=== PATIENT | female | born 1950 | race Caucasian/White ===

== ENCOUNTER 2018-03-21 09:08 | Outpatient (CLI) | payer MEDICARE, OTHER ==
[~2018-03-21] VITALS: Ht 165.1 cm; Wt 102.5 kg
[2018-03-21 09:20] VITALS: BP 134/57
[2018-03-21 10:09] LABS: BASOPHILS % (AUTO) 1 % (0-10); EOSINOPHILS # (AUTO) 0.2 10^3/uL (0.0-0.3); EOSINOPHILS % (AUTO) 5 % (0-10); HEMATOCRIT 41 % (35-52); HEMOGLOBIN 14.6 G/DL (11.5-16.0); LYMPHOCYTES # (AUTO) 1.3 X 10^3 (1.0-4.0); LYMPHOCYTES % (AUTO) 27 % (12-44); MEAN CORPUSCULAR HEMOGLOBIN 33 PG (25-34); MEAN CORPUSCULAR HGB CONC 36 G/DL (32-36); MEAN CORPUSCULAR VOLUME 91 FL (80-99); MEAN PLATELET VOLUME 12.2 FL (7.4-10.4); MONOCYTES # (AUTO) 0.4 X 10^3 (0.0-1.0); MONOCYTES % (AUTO) 9 % (0-12); NEUTROPHILS # (AUTO) 2.8 X 10^3 (1.8-7.8); NEUTROPHILS % (AUTO) 59 % (42-75); PLATELET COUNT 192 10^3/uL (130-400); RED BLOOD COUNT 4.47 10^6/uL (4.35-5.85); RED CELL DISTRIBUTION WIDTH 12.3 % (10.0-14.5); WHITE BLOOD COUNT 4.8 10^3/uL (4.3-11.0)
[2018-03-21 10:12] LABS: BILIRUBIN,URINE NEGATIVE (NEGATIVE); CLARITY,URINE CLEAR; COLOR,URINE YELLOW; GLUCOSE, URINE (UA) NEGATIVE (NEGATIVE); KETONES,URINE NEGATIVE (NEGATIVE); LEUKOCYTE ESTERASE ,URINE NEGATIVE (NEGATIVE); NITRITE,URINE NEGATIVE (NEGATIVE); PH,URINE 6.5 (5-9); PROTEIN,URINE NEGATIVE (NEGATIVE); UROBILINOGEN,URINE NORMAL (NORMAL)
[2018-03-21 10:22] LABS: BACTERIA,URINE NEGATIVE /HPF; WBC,URINE 0-2 /HPF
[2018-03-21 10:23] LABS: PROTHROMBIN TIME PATIENT 13.5 SEC (12.2-14.7)
[2018-03-21 10:28] LABS: BUN/CREATININE RATIO 22; CALCIUM 9.2 MG/DL (8.5-10.1); CARBON DIOXIDE 24 MMOL/L (21-32); CHLORIDE 105 MMOL/L (98-107); CREATININE SERUM 0.69 MG/DL (0.60-1.30); GFR ESTIMATED > 60; GLUCOSE 91 MG/DL (70-105); POTASSIUM 3.7 MMOL/L (3.6-5.0); SODIUM 139 MMOL/L (135-145)
[2018-03-21] MEDS ORDERED: UBID100C17 PO (10:39)
[2018-03-21] MEDS ORDERED: GLUC-116 PO (10:39)
[2018-03-21] MEDS ORDERED: KRIL500C PO (10:39)
[2018-03-21] MEDS ORDERED: NAPR500T8 PO (10:39)
[2018-03-21] MEDS ORDERED: SOUR1000 PO (10:39)
[2018-03-21] MEDS ORDERED: CARV12.53 PO (10:39)
[2018-03-21] MEDS ORDERED: HYDR25TA4 PO (10:39)
[2018-03-21] MEDS ORDERED: MULT-1029 PO (10:39)
[2018-03-21] MEDS ORDERED: AMLO5TAB7 PO (10:39)
[2018-03-21] MEDS ORDERED: TURM500C7 PO (10:39)
[2018-03-21] MEDS ORDERED: LEVO125T6 PO (10:39)
--- NOTE | 2018-03-21 11:12 | Diagnostic Imaging Report ---
INDICATION: Preop total knee arthroplasty. TIME OF EXAM: 10:36 AM No prior studies are available for comparison. FINDINGS: The heart size is normal. The pulmonary vascularity is unremarkable. The lungs are clear. No infiltrate, effusion or pneumothorax is detected. IMPRESSION: No acute cardiopulmonary process is detected. Dictated by: Dictated on workstation # [id number]
[2018-03-21] MEDS ORDERED: NAPR-915 PO (15:44)
== END 2018-03-21 10:15 | disposition home or self-care (01) ==
LOC: PREOP 09:08 → EDBD 09:08 → PREOP 10:15
PROVIDERS: ATTEND Orthopaedic Surgery
DX: Z01.810 Encounter for preprocedural cardiovascular examination (principal); Z01.811 Encounter for preprocedural respiratory examination; Z01.812 Encounter for preprocedural laboratory examination; Z11.2 Encounter for screening for other bacterial diseases; M17.11 Unilateral primary osteoarthritis, right knee; I10 Essential (primary) hypertension; R53.83 Other fatigue
CPT/HCPCS: 36415; 71046; 80048; 81000; 85025; 85610; 86850; 86900; 86901; 87081; 93005

== ENCOUNTER 2018-04-02 09:15 | Inpatient (IN) | payer MEDICARE, OTHER ==
[~2018-04-02] VITALS: Ht 165.1 cm; Wt 102.5 kg
[~2018-04-02 09:15] MED LIST: AMLO5TAB7 PO; CARV12.53 PO; GENTAMICIN 40 MG/ML 2 ML INJ SDV ONE; GLUC-116 PO; HYDR25TA4 PO; KRIL500C PO; LEVO125T6 PO; MULT-1029 PO; NAPR-915 PO; NAPR500T8 PO; NEO/POLY/BAC (NEOSPORIN) OINT 15 GM TUBE ONE; SOUR1000 PO; TURM500C7 PO; UBID100C17 PO
[2018-04-02 09:23] VITALS: BP 117/65
[2018-04-02] MEDS ORDERED: BUPIVACAINE 0.5% 30 ML (SENSORCAINE) VIAL ONE (09:26)
[2018-04-02] MEDS ORDERED: DEXAMETHASONE 10 MG/ML (DECADRON) 1 ML VIAL ONE (09:26)
[2018-04-02] MEDS ORDERED: fentaNYL INJECTION 100 MCG/2 ML AMP ONE (09:26)
[2018-04-02] MEDS ORDERED: SEVOFLURANE (ULTANE) 15 ML INHAL SOLN ONE ×9 (09:26→13:08)
[2018-04-02] MEDS ORDERED: LIDOCAINE PF 2% 5 ML (XYLOCAINE) VIAL ONE (09:26)
[2018-04-02] MEDS ORDERED: TRANEXAMIC ACID 100 MG/ML 10 ML INJECTION IV ONE (09:26)
[2018-04-02] MEDS ORDERED: ONDANSETRON 4 MG/2 ML (SDV) Z0FRAN ONE (09:26)
[2018-04-02] MEDS ORDERED: proPOfol 200 MG/20 ML (DIPRIVAN) VIAL IV ONE (09:26)
[2018-04-02] MEDS ORDERED: ROCURONIUM 10 MG/ML 5 ML SYRINGE IV ONE (09:26)
[2018-04-02] MEDS ORDERED: MIDAZOLAM 2 MG/2 ML (VERSED) VIAL ONE (09:26)
[2018-04-02] MEDS ORDERED: GABAPENTIN 600 MG (NEURONTIN) TAB PO ONE (09:45)
[2018-04-02] MEDS ORDERED: ceFAZolin 2 GM IV Premixed 50 ML IV ONE (09:45)
[2018-04-02] MEDS ORDERED: CELECOXIB 100 MG (CeleBREX) CAP PO ONE (09:45)
[2018-04-02] MEDS ORDERED: DEXAMETHASONE 4 MG/ML SDV (DECADRON) IV ONE (09:45)
[2018-04-02] MEDS ORDERED: ONDANSETRON 4 MG/2 ML (SDV) Z0FRAN IVP ONE (09:45)
[2018-04-02] MEDS ORDERED: INTRA-ARTICULAR IU ONE ×4 (10:00)
[2018-04-02] MEDS: LACTATED RINGERS 1,000 ML IV PRN ×2 (10:08→11:35)
--- NOTE | 2018-04-02 10:29 | Progress Note-Pre Operative ---
Pre-Operative Progress Note H&P Reviewed The H&P was reviewed, patient examined and no changes noted. Date Seen by Provider: Apr 02, 2018 Time Seen by Provider: 10:15 Date H&P Reviewed: Apr 02, 2018 Time H&P Reviewed: 10:15 Pre-Operative Diagnosis: Primary Osteoarthritis Right Knee MIKHAIL MORRIS DO Apr 02, 2018 10:29 am
[2018-04-02] MEDS ORDERED: BISACODYL 10 MG SUPP (DULCOLAX) PR PRN (10:30)
[2018-04-02] MEDS ORDERED: KETOROLAC 15 MG/ML VIAL IVP PRN (10:30)
[2018-04-02] MEDS ORDERED: diphenhydrAMINE 50 MG/ML INJ (BENADRYL) IV PRN (10:30)
[2018-04-02] MEDS ORDERED: PROMETHAZINE INJ 25 MG/ML (PHENERGAN) AMP IVP PRN (10:30)
[2018-04-02] MEDS ORDERED: morphine INJ 10 MG/ML 1ML (SYR OR VIAL) IVP PRN (10:30)
[2018-04-02] MEDS ORDERED: ONDANSETRON 4 MG/2 ML (SDV) Z0FRAN IVP PRN ×2 (10:30→13:15)
[2018-04-02] MEDS ORDERED: BACLOFEN 10 MG (LIORESAL) TAB PO PRN (10:30)
[2018-04-02] MEDS ORDERED: GLYCOPYRROLATE 0.2 MG/ML (ROBINUL) 2 ML VIAL ONE (12:26)
[2018-04-02] MEDS ORDERED: NEOSTIGMINE 1 MG/ML 5 ML SYRINGE ONE (12:26)
[2018-04-02] MEDS ORDERED: morphine INJ 10 MG/ML 1ML (SYR OR VIAL) IVP ONE (13:15)
[2018-04-02] MEDS ORDERED: HYDROmorphone 2 MG/ML VIAL (DILAUDID) IV ONE (13:15)
--- NOTE | 2018-04-02 13:16 | Progress Note-Post Operative ---
Post-Operative Progess Note Surgeon (s)/Mine Administrator Supervisor (s) Surgeon MIKHAIL MORRIS DO Mine Administrator Supervisor: Hilario Machado HAND PRESSER-Gómez Pre-Operative Diagnosis Primary Osteoarthritis Right Knee Post-Operative Diagnosis same Procedure & Operative Findings Date of Procedure 04/02/18 Procedure Performed/Findings Right Total Knee Arthroplasty Anesthesia Type General with femoral nerve block Estimated Blood Loss Estimated blood loss (mL): !oo ml Specimens/Packing Specimens Removed none MIKHAIL MORRIS DO Apr 02, 2018 1:16 pm
--- NOTE | 2018-04-02 13:32 | Anesthesia-General Post-Op ---
General Patient Condition Mental Status/LOC: Same as Preop Cardiovascular: Satisfactory Nausea/Vomiting: Absent Respiratory: Satisfactory Pain: Controlled Complications: Absent Post Op Complications Complications None Follow Up Care/Instructions Patient Instructions None needed. Anesthesia/Patient Condition Patient Condition Patient is doing well, no complaints, stable vital signs, no apparent adverse anesthesia problems. No complications reported per nursing. TESSIE MERCER CRNA Apr 02, 2018 13:32
[2018-04-02 13:55] VITALS: BP 145/72
[2018-04-02] MEDS ORDERED: FLU QUADRIvalent (5+ YOA) 2018-2019 (AFLURIA) 0.5 ML IM ONE (15:30)
[2018-04-02] MEDS: D5 1/2 NS 1000 ML IV SOLUTION 1,000 ML IV SCH (16:01)
[2018-04-02 16:12] VITALS: BP 158/77
--- NOTE | 2018-04-02 16:44 | Diagnostic Imaging Report ---
INDICATION: Right knee surgery. TIME OF EXAM: 01:13 p.m. FINDINGS: Two views of the right knee demonstrate postop changes of total knee arthroplasty. Prosthetic elements are in good position without fracture or loosening. Overlying skin viviana are noted. IMPRESSION: Satisfactory postop appearance to the right knee. Dictated by: Dictated on workstation # [id number]
[2018-04-02] MEDS: ceFAZolin 2 GM IV Premixed 50 ML IV SCH (17:36)
[2018-04-02] MEDS: CARVEDILOL 12.5 MG (COREG) TABLET PO SCH (20:23)
[2018-04-02 20:29] VITALS: BP 150/72
[2018-04-03] VITALS (7 sets, daily range): BP systolic 106–155; BP diastolic 56–72
[2018-04-03] MEDS: ceFAZolin 2 GM IV Premixed 50 ML IV SCH (01:27)
--- NOTE | 2018-04-03 04:00 | OPERATIVE REPORT ---
DATE OF SERVICE: PREOPERATIVE DIAGNOSIS: Primary osteoarthritis, right knee. POSTOPERATIVE DIAGNOSIS: Primary osteoarthritis, right knee. PROCEDURE: Right total knee arthroplasty. SURGEON: Mikhail Morris DO RESERVATIONS AND TICKETING AGENT: ALICIA Monreal EXTENSION SUPERVISOR DUTIES: Hilario Machado, surgical services tech was utilized throughout the entire procedure for patient positioning, soft tissue retraction, placement of metallic implants, wound closure, dressing application and patient's transfer. ANESTHESIA: General with a femoral nerve block. ESTIMATED BLOOD LOSS: 100 mL. INDICATIONS AND FINDINGS: The patient is a 67-year-old female seen with chief complaint of progressive right knee pain nonresponsive to conservative treatment. X-rays reveal collapse of her medial patellofemoral compartment. The patient was taken to surgery where a total knee arthroplasty was performed on the right without complication utilizing the Biomet Skycheckinguard total knee system with a press fit 70 mm femoral component cemented 75 mm tibial component, a 34 mm 3-pronged all polyethylene cemented thin patellar component with an 11 mm anterior stabilized tibial bearing implant. PROCEDURE IN DETAIL: The patient was seen by anesthesia preoperatively and under ultrasound guidance, a femoral nerve block was performed on the right to decrease postop pain and decreased amount of medication required during the surgical procedure. The patient was transported to the operating room where general inhalation anesthetic was administered. A well-padded pneumatic tourniquet was placed about the upper aspect of the right thigh. ChloraPrep and sterile drape of the right lower extremity was performed. The right leg was elevated, exsanguinated and the tourniquet was inflated to 300 mmHg pressure. An anterior longitudinal midline incision was made over the anterior surface of the right knee and the incision was deepened through a medial parapatellar incision. The patella was subluxed laterally. Osteophytes from the distal femur were removed with a bone rongeur. A bar pilot hole was then drilled in the distal femur. An intramedullary sha was inserted utilizing a 5-degree valgus cutting guide. A distal femoral cutting guide was assembled and distal femoral osteotomy was completed. The distal femur was sized to a 70 mm component. A 4-way cutting guide was assembled. Anterior and posterior chamfer cuts of the distal femur made. The tibia was subluxed anteriorly. Remnants of the medial and lateral menisci as well as the anterior cruciate ligament were excised. A bar pilot hole was then drilled in the proximal tibia. An intramedullary sha was inserted measuring off the exposed bone over the proximal medial tibia. A proximal tibial cutting guide was assembled and a proximal tibial osteotomy was completed. The knee was taken into full extension with a provisional spacer with satisfactory full extension obtained after subperiosteal dissection was performed of the proximal medial tibia. The osteophytes from the patella rim were removed with a bone rongeur. The posterior aspect of the patella was resected through a cutting guide and drilled through a drill guide. The provisional components were inserted. The knee was cycled through a range of motion. Rotation of the tibial component was noted and marked on the proximal tibia. The proximal tibia was then broached to accept the I-beam stem portion of the implant. The bony surfaces were irrigated extensively with normal saline solution. [place] bone cement was then mixed. This was pressurized in the proximal tibia. The tibial component was cemented in place. The femoral component was press fit into place. The knee was taken into full extension with a provisional tibial bearing implant. The patellar component was cemented in place and held with a clamp. Excess bone cement was removed. The cement was allowed to set. The provisional tibial bearing implant was removed. The knee was additionally irrigated with normal saline solution. The anterior stabilized 11 mm implant was then inserted and locked anteriorly with a locking bar. The knee again was cycled through a range of motion with no instability noted in midrange flexion, full flexion with full extension obtained. The tourniquet was released. Hemostasis was obtained with electrocautery. The knee was placed in 90 degrees of flexion. The medial retinaculum was closed with multiple interrupted [id number] sutures of #1 Vicryl reinforced with a running suture of #1 Stratafix. The subcutaneous tissues were closed with 0 and 2-0 Vicryl suture and the skin was closed with stainless steel viviana and Adaptic Neosporin bulky dressing was placed about the right knee. The patient was awakened and was transported to postoperative recovery with anesthesia personnel present in satisfactory condition. Job ID: [id number] DocumentID: [id number] Dictated Date: 04/02/2018 22:12:08 Print Line Operator Date: 04/03/2018 03:59:08 Dictated By: MIKHAIL MORRIS DO
[2018-04-03] MEDS: D5 1/2 NS 1000 ML IV SOLUTION 1,000 ML IV SCH (05:39)
[2018-04-03] MEDS: LEVOTHYROXINE 125 MCG (LEVOTHROID) TABLET PO SCH (05:39)
[2018-04-03 06:07] LABS: HEMOGLOBIN 13.2 G/DL (11.5-16.0); MEAN PLATELET VOLUME 11.9 FL (7.4-10.4); RED BLOOD COUNT 4.12 10^6/uL (4.35-5.85); RED CELL DISTRIBUTION WIDTH 12.2 % (10.0-14.5); WHITE BLOOD COUNT 13.3 10^3/uL (4.3-11.0)
[2018-04-03 06:28] LABS: BUN/CREATININE RATIO 15; CALCIUM 8.7 MG/DL (8.5-10.1); CARBON DIOXIDE 22 MMOL/L (21-32); CHLORIDE 104 MMOL/L (98-107); CREATININE SERUM 0.72 MG/DL (0.60-1.30); GFR ESTIMATED > 60; GLUCOSE 131 MG/DL (70-105); POTASSIUM 3.6 MMOL/L (3.6-5.0); SODIUM 138 MMOL/L (135-145)
[2018-04-03] MEDS: HYDROcodone/APAP 10 MG/325 MG (LORTAB) TAB PO PRN ×4 (07:55→20:32)
[2018-04-03] MEDS: HYDROCHLOROTHIAZIDE 25 MG (HCTZ) TAB PO SCH (08:08)
[2018-04-03] MEDS: ASPIRIN E.C. 325 MG (ECOTRIN) TABLET PO SCH (08:09)
[2018-04-03] MEDS: amLODIPine 5 MG (NORVASC) TAB PO SCH (08:09)
[2018-04-03] MEDS: CARVEDILOL 12.5 MG (COREG) TABLET PO SCH ×2 (08:09→20:32)
[2018-04-03] MEDS: ENOXAPARIN 40 MG/0.4 ML (LOVENOX) SYR SC SCH (08:10)
--- NOTE | 2018-04-03 09:39 | Physical Therapy Evaluation ---
PT Evaluation-General Medical Diagnosis Admission Date Apr 02, 2018 at 09:15 Medical Diagnosis: right TKA Onset Date: Apr 02, 2018 Therapy Diagnosis Therapy Diagnosis: impaired mobility, strength, endurance, ROM Height/Weight Height (Feet): 5 Height (Inches): 5.00 Weight (Pounds): 226 Weight (Ounces): 0.0 Precautions Precautions/Isolations: Fall Prevention, Standard Precautions Weight Bear Status Right Lower Extremity: Right Weight Bearing/Tolerated Left Lower Extremity: Left Full Weight Bearing Referral Physician: Hilario Machado APRN Reason for Referral: Evaluation/Treatment Social History Home: Multilevel (basement) Current Living Status: Spouse Entry Into Home: Stairs Without Railing PT Steps Into Home: 3 has a pole to hold onto with the 3 steps to enter home Prior/Core FIM Prior Level of Function Functional [place] Measure 0=Not Assessed/NA 4=Minimal Assistance 1=Total Assistance 5=Supervision or Setup 2=Maximal Assistance 6=Modified [place] 3=Moderate Assistance 7=Complete IndependenceIRFPAI Quality Coding Scale 6 Independent with activity with or without an assistive device 5 Patient requires set up or clean up by helper. Patient completes activity by themselves 4 Supervision or touching assist (CGA). [place] provide cues , steadying assist 3 The helper provides less than half the effort to complete the activity 2 The helper provides more than half the effort to complete the activity 1 Dependent. The helper does all the effort to complete an activity 7 Patient refused to complete or attempt activity 9 The patient did not perform the activity before the current illness or injury 88 Not attempted due to Medical conditions or safety concerns Bed Mobility: 7 Transfers (B,C,W/C) (FIM): 7 Gait: 7 PT Evaluation-Current Subjective Patient in recliner pre tx, agrees to PT, no complaints of pain. Pt/Family Goals to be independent at home Objective Patient Orientation: Person, Place, Situation Attachments: SCD's, Polar Pack, IV ROM/Strength ROM Lower Extremities right knee extension +5, flexion 90 degrees Strength Lower Extremities NT Neuromuscular (Tone, Coordination, Reflexes) NT Sensory Vision: Wears Glasses Hearing: Functional Sensation Right Lower Extremit: Impaired Sensation Left Lower Extremity: Intact Sensation Lower Extremities Patient has some numbness in medial right knee Transfers Functional [place] Measure 0=Not Assessed/NA 4=Minimal Assistance 1=Total Assistance 5=Supervision or Setup 2=Maximal Assistance 6=Modified [place] 3=Moderate Assistance 7=Complete [place] Transfers (B, C, W/C) (FIM): 4 Scootin Rollin Supine to/from Sit: 5 Sit to/from Stand: 4 CGA for sit to stand, no complaints of dizziness, cues for hand placement and safety Gait Mode of Locomotion: Walk Anticipated Mode of Locomotion: Walk Gait (FIM): 2 Distance: 60' Gait Level of Assist: 4 Gait Persons Needed: 1 Gait Assistive Device: FWW Comments/Gait Description Patient ambulated 60' with a rolling walker with CGA, stiff right knee with little flexion during ambulation, good step-through Balance Sitting Static: Normal Sitting Dynamic: Normal Standing Static: Good Standing Dynamic: Good Treatment right TKA protocol x10 (AP, QS, HS, SAQ, SLR), CPM donned post tx at 70/-2, polar care on , SCD's on, patient in bed post tx with nurse call, phone, tray, all needs met. Assessment/Needs Patient has impaired mobility, strength, endurance, ROM post right TKA Rehab Potential: Fair PT Short Term Goals Short Term Goals Time Frame: Apr 10, 2018 Transfers (B,C,W/C) (FIM): 5 Gait (FIM): 5 Gait Distance Comment: 150' Gait Level of Assist: 5 Gait Assistive Device: FWW PT Plan Problem List Problem List: Activity Tolerance, Functional Strength, Safety, Balance, Gait, Transfer, Bed Mobility, ROM Treatment/Plan Treatment Plan: Continue Plan of Care Treatment Plan: Bed Mobility, Education, Functional Activity Jayy, Functional Strength, Gait, Safety, Therapeutic Exercise, Transfers Treatment Duration: Apr 10, 2018 Frequency: 11 times per week Estimated Hrs Per Day: .25 hour per day (15-30') Patient and/or Family Agrees t: Yes Safety Risks/Education Patient Education: Gait Training, Transfer Techniques, Reviewed Precautions, Reviewed Use of Ice, Correct Positioning, Safety Issues Teaching Recipient: Patient Teaching Methods: Demonstration, Discussion Response to Teaching: Reinforcement Needed Discharge Recommendations Plan Patient will perform bed mobility and transfer training, balance and endurance training, functional strengthening, stair training, gait training, and education , to improve functional mobility and independence at home. Therapy D/C Recommendations: Home w/ Family Support Time/GCodes Time In: 901 Time Out: 929 Total Billed Treatment Time: 28 Total Billed Treatment 1 visit EVL 15' GT 13' ANNE MARIE WATTERS PT Apr 03, 2018 09:39
--- NOTE | 2018-04-03 11:13 | Consultation-Hospitalist ---
HPI History of Present Illness: HPI/Chief Complaint CC: Medical management following right total knee replacement POD # 1 HPI: This is a 67-year-old white female of Angelica Cannon and ELADIO Ortiz nurse practitioner who presents after an uncomplicated right total knee replacement by Dr. Sheehan. 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 I checked meds and labs and evaluated medical history. Date Seen 04/03/18 Attending Physician Petros Sheehan DO PCP No,Local Physician Referring Physician Date of Admission Apr 02, 2018 at 09:15 Home Medications & Allergies Home Medications Reviewed patient Home Medication Reconciliation performed by pharmacy medication reconciliations electro mechanical solar technician and/or nursing. Patients Allergies have been reviewed. 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) Alcohol Use: Regular Use Number of Drinks Today: 0 Alcohol Beverage of Choice: Wine Recreational Drug Use: No Smoking Status: Never a Smoker Physical Abuse Screen: No Sexual Abuse: No Recent Foreign Travel: No Contact w/other who traveled: No Recent Hopitalizations: No Recent Infectious Disease Expo: No Seasonal Allergies Seasonal Allergies: Yes Past Medical History Surgeries: Orthopedic Cardiac: Hypertension Musculoskeletal: Arthritis Endocrine: Hypothyroidsim History of Blood Disorders: No Family History Cardiovascular disease 19 FATHER FH: prostate cancer 19 FATHER Hypertension 19 FATHER 19 MOTHER Myocardial infarction 19 FATHER 19 MOTHER Hypertension Review of Systems Constitutional: see HPI EENTM: no symptoms reported Respiratory: no symptoms reported Cardiovascular: no symptoms reported Gastrointestinal: no symptoms reported Musculoskeletal: joint pain (right knee) Skin: no symptoms reported Psychiatric/Neurological: No Symptoms Reported All Other Systems Reviewed Negative Unless Noted: Yes Physical Exam Physical Exam Vital Signs Vital Signs - First Documented 04/02/18 04/02/18 09:23 14:00 Temp 98.1 Pulse 63 Resp 18 B/P (MAP) 117/65 (82) Pulse Ox 94 O2 Delivery Room Air O2 Flow Rate 3.00 Capillary Refill : Height, Weight, BMI Height: 5'5.00" Weight: 226lbs. 0.0oz. [id number]; 37.6 BMI Method: General Appearance: No Apparent Distress, WD/WN, Chronically ill, Obese Eyes: Bilateral Eye Normal Inspection, Bilateral Eye PERRL HEENT: PERRL/EOMI, TMs Normal, Normal ENT Inspection, Pharynx Normal Neck: Full Range of Motion, Normal Inspection, Non Tender, Supple, Carotid Bruit Respiratory: Chest Non Tender, Lungs Clear, Normal Breath Sounds, No Accessory Muscle Use, No Respiratory Distress Cardiovascular: Regular Rate, Rhythm, No Edema, No Gallop, No JVD, No Murmur, Normal Peripheral Pulses Gastrointestinal: Normal Bowel Sounds, No Organomegaly, No Pulsatile Mass, Non Tender, Soft Back: Normal Inspection, No CVA Tenderness, No Vertebral Tenderness Extremity: Normal Capillary Refill, Normal Inspection, Normal Range of Motion ( except right knee limited ROM on CPM machine), Non Tender, No Calf Tenderness, No Pedal Edema Neurologic/Psychiatric: Alert, Oriented x3, No Motor/Sensory Deficits, Normal Mood/Affect Skin: Normal Color, Warm/Dry Lymphatic: No Adenopathy Results Results/Procedures Labs Laboratory Tests 04/03/18 05:30 Patient resulted labs reviewed. Assessment/Plan Assessment and Plan Assess & Plan/Chief Complaint Assessment: Status post uncomplicated right total knee replacement by Dr. Sheehan POD # 1 Hypertension Obesity Hypothyroidism Plan: Maintain DVT prophylaxis per protocol Monitor labs Monitor hypertension Diagnosis/Problems Diagnosis/Problems (1) Primary osteoarthritis of right knee Status: Chronic (2) Hypertension Status: Chronic Qualifiers: Hypertension type: essential hypertension Qualified Codes: I10 - Essential (primary) hypertension (3) Hypothyroidism Status: Chronic Qualifiers: Hypothyroidism type: acquired Qualified Codes: E03.9 - Hypothyroidism, unspecified Clinical Quality Measures DVT/VTE Risk/Contraindication: Risk Factor Score Per Nursin RFS Level Per Nursing on Admit: 3=High JENNIFER BOYCE DO Apr 03, 2018 11:13
--- NOTE | 2018-04-03 12:02 | Progress Note (SOAP) ---
Subjective Date Seen by a Provider: Apr 03, 2018 Time Seen by a Provider: 12:01 Subjective/Events-last exam pod 1 s/p right TKA, doing well, no complaints, pain controlled. already ambulated down [place] with therapy. Objective Exam Vital Signs Date Time Temp Pulse Resp B/P (MAP) Pulse Ox O2 Delivery O2 Flow Rate FiO2 04/03/18 09:00 96 Room Air 0.00 04/03/18 08:00 98.7 62 20 132/72 (92) 96 Room Air 04/03/18 04:00 97.6 58 16 129/56 (80) 95 Nasal Cannula 3.00 04/03/18 00:43 96.5 65 16 136/68 (90) 96 Room Air 04/02/18 21:34 2.00 04/02/18 21:00 96 Nasal Cannula 3.00 04/02/18 20:29 95.7 66 12 150/72 (98) 96 Room Air 04/02/18 16:12 97.5 54 12 158/77 (104) 99 Room Air 04/02/18 15:57 Nasal Cannula 2.00 04/02/18 14:55 95.1 04/02/18 14:00 94 Nasal Cannula 3.00 04/02/18 13:55 95.1 56 18 145/72 (96) 95 Room Air I & O 04/03/18 07:00 Intake Total 3750 ml Output Total 2000 ml Balance 1750 ml Capillary Refill : General Appearance: No Apparent Distress Extremity: Normal Capillary Refill, Normal Inspection, Non Tender, No Calf Tenderness, No Pedal Edema Neurologic/Psychiatric: Alert, Oriented x3, No Motor/Sensory Deficits, Normal Mood/Affect Skin: Normal Color, Warm/Dry (dressing right knee has spotty serosang drainage) Results Lab Laboratory Tests 04/03/18 05:30: White Blood Count 13.3H, Red Blood Count 4.12L, Hemoglobin 13.2, Hematocrit 37, Mean Corpuscular Volume 89, Mean Corpuscular Hemoglobin 32, Mean Corpuscular Hemoglobin Concent 36, Red Cell Distribution Width 12.2, Platelet Count 230, Mean Platelet Volume 11.9H, Sodium Level 138, Potassium Level 3.6, Chloride Level 104, Carbon Dioxide Level 22, Anion Gap 12, Blood Urea Nitrogen 11, Creatinine 0.72, Estimat Glomerular Filtration Rate > 60, BUN/Creatinine Ratio 15, Glucose Level 131H, Calcium Level 8.7 Assessment/Plan Assessment/Plan Assess & Plan/Chief Complaint A: s/p right TKA P: continue current treatment, plan to discharge to home with homehealthcare tomorrow. Clinical Quality Measures DVT/VTE Risk/Contraindication: Risk Factor Score Per Nursin RFS Level Per Nursing on Admit: 3=High ELIAS HERNANDEZ APRN Apr 03, 2018 12:02 pm
--- NOTE | 2018-04-03 13:04 | Occupational Therapy Eval ---
OT Evaluation-General/PLF Medical Diagnosis Admission Date Apr 02, 2018 at 09:15 Medical Diagnosis: right TKA Onset Date: Apr 02, 2018 Therapy Diagnosis Therapy Diagnosis: decreased self care skills Height/Weight Height (Feet): 5 Height (Inches): 5.00 Weight (Pounds): 226 Weight (Ounces): 0.0 Precautions Precautions/Isolations: Fall Prevention, Standard Precautions Safety Interventions: None Referral Physician: Hilario Machado APRN Medical History Pertinent Medical History: Arthritis, HTN, Hypothroidism Additional Medical History cataracts, cardiac disorder Current History pt s/p elective right TKA Reviewed History: Yes Social History Home: Multilevel (basement) Current Living Status: Spouse Entry Into Home: Stairs Without Railing Steps Into Home: 3 ADL-Prior Level of Function Functional [place] Measure 0=Not Assessed/NA 4=Minimal Assistance 1=Total Assistance 5=Supervision or Setup 2=Maximal Assistance 6=Modified [place] 3=Moderate Assistance 7=Complete [place] ADL PLOF Comments Pt reports being independent with self care and mobility prior to surgery. 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 Pt reports 2/10 pain in right knee. Mental Status/Objective Patient Orientation: Person, Place, Time, Situation Attachments: IV Current Glasses/Contacts: Yes Hearing Aids: No Upper Extremity ROM Grossly WFL Upper Extremity Coordination Intact Upper Extremity Sensation intact Upper Extremity Strength Grossly WFL ADL-Treatment ADL-Current Pt supine to sit with supervision. Pt donned underwear while seated EOB. Pt able to thread bilateral LE into pant legs. Pt able to pull underwear up over hips, but had LOB requiring min assist to correct. Gait to restroom with FWW. Transfer to toilet with CGA using grab bars. Pt able to complete toileting hygiene and clothing management with CGA for balance. Stood at sink to wash hands with SBA. Pt returned to EOB and completed sit to supine with SBA. Pt resting in bed with needs met, polar pack and CPM in place after session. Functional [place] Measure 0=Not Assessed/NA 4=Minimal Assistance 1=Total Assistance 5=Supervision or Setup 2=Maximal Assistance 6=Modified [place] 3=Moderate Assistance 7=Complete IndependenceIRFPAI Quality Coding Scale 6 Independent with activity with or without an assistive device 5 Patient requires set up or clean up by helper. Patient completes activity by themselves 4 Supervision or touching assist (CGA). [place] provide cues , steadying assist 3 The helper provides less than half the effort to complete the activity 2 The helper provides more than half the effort to complete the activity 1 Dependent. The helper does all the effort to complete an activity 7 Patient refused to complete or attempt activity 9 The patient did not perform the activity before the current illness or injury 88 Not attempted due to Medical conditions or safety concerns Lower Body Dressing (FIM): 4 Toileting (FIM): 4 (CGA) Toilet/Commode Transfer (FIM): 4 (CGA) Education OT Patient Education: Rehab process Teaching Recipient: Patient Teaching Methods: Discussion Response to Teaching: Verbalize Understanding OT Short Term Goals Short Term Goals Transfers (B,C,W/C) (FIM): 5 1=Demonstrate adherence to instructed precautions during ADL tasks. 2=Patient will verbalize/demonstrate understanding of assistive devices/ modifications for ADL. 3=Patient will improve strength/tolerance for activity to enable patient to perform ADL's. OT Financial Advisor Goals Skilled Nursing Goals Time Frame: Apr 10, 2018 Grooming(FIM): 6 Bathing(FIM): 5 Upper Body Dressing(FIM): 6 Lower Body Dressing(FIM): 6 Toileting(FIM): 6 Toilet/Commode Transfer(FIM): 6 Additional Goals: 2-Verbalize Understanding, 3-ImproveStrength/Jayy 1=Demonstrate adherence to instructed precautions during ADL tasks. 2=Patient will verbalize/demonstrate understanding of assistive devices/ modifications for ADL. 3=Patient will improve strength/tolerance for activity to enable patient to perform ADL's. OT Education/Plan Problem List/Assessment Assessment: Dependent Transfers, Impaired Self-Care Skills Pt s/p elective right TKA with decreased mobility and ADL functioning. Pt to benefit from skilled OT intervention for ADL training, transfers, and home safety education to increase level of independence and allow safe return home. Discharge Recommendations Plan/Recommendations: Continue POC Treatment Plan/Plan of Care Treatment,Training & Education: Yes Patient would benefit from OT for education, treatment and training to promote independence in ADL's, mobility, safety and/or upper extremity function for ADL' s. Plan of Care: ADL Retraining, Functional Mobility, UE Funct Exercise/Act Treatment Duration: Apr 10, 2018 Frequency: 5 times per week Estimated Hrs Per Day: .25 hour per day Rehab Potential: Good Time/GCodes Start Time: 10:25 Stop Time: 11:00 Total Time Billed (hr/min): 35 Billed Treatment Time 1 visit, EVL(15minutes), ADL(20minutes) DANIEL LEUNG OT Apr 03, 2018 13:04
--- NOTE | 2018-04-03 13:58 | Physical Therapy Daily Note ---
PT Daily Note-Current Subjective Pt. in bed on CPM and polar pack, stats she is ready to get up , toilet and sit up for a meal, agrees to Rx. Pain Numeric Pain Scale: 2 Location: Right Location Body Site: Knee Pain Description: Ache Mental Status Patient Orientation: Normal For Age Transfers Functional [place] Measure 0=Not Assessed/NA 4=Minimal Assistance 1=Total Assistance 5=Supervision or Setup 2=Maximal Assistance 6=Modified [place] 3=Moderate Assistance 7=Complete IndependenceIRFPAI Quality Coding Scale 6 Independent with activity with or without an assistive device 5 Patient requires set up or clean up by helper. Patient completes activity by themselves 4 Supervision or touching assist (CGA). [place] provide cues , steadying assist 3 The helper provides less than half the effort to complete the activity 2 The helper provides more than half the effort to complete the activity 1 Dependent. The helper does all the effort to complete an activity 7 Patient refused to complete or attempt activity 9 The patient did not perform the activity before the current illness or injury 88 Not attempted due to Medical conditions or safety concerns in out bed and up down chair and toilet all SBA to CGA Weight Bearing Right Lower Extremity: Right Weight Bearing/Tolerated Left Lower Extremity: Left Full Weight Bearing Gait Training Gait Assistive Device: FWW 200ft, 40ft CGA to SBA, moderate weight bearing on FWW, no LOB, good step length no c/o pain Exercises Supine Ex: Ankle pumps, Quad Set, Heel Slides, Straight leg raise Supine Reps: 15 Seated Therapy Exercises: Ankle pumps, Sit to stand, Long arc quads Seated Reps: 12 Treatments toileted managing clothing and clean up SBA, up in recliner after for meal with LEs elevated, day at hand Assessment Current Status: Good Progress AROM approx 5 to 60 degrees PT Short Term Goals Short Term Goals Time Frame: Apr 10, 2018 Transfers (B,C,W/C) (FIM): 5 Gait (FIM): 5 Gait Distance Comment: 150' Gait Level of Assist: 5 Gait Assistive Device: FWW PT Plan Treatment/Plan Treatment Plan: Continue Plan of Care Treatment Plan: Bed Mobility, Education, Functional Activity Jayy, Functional Strength, Gait, Safety, Therapeutic Exercise, Transfers Treatment Duration: Apr 10, 2018 Frequency: 11 times per week Estimated Hrs Per Day: .25 hour per day (15-30') Patient and/or Family Agrees t: Yes Safety Risks/Education Patient Education: Gait Training, Transfer Techniques, Correct Positioning, Disease Process, Safety Issues Teaching Recipient: Patient Teaching Methods: Demonstration, Discussion Response to Teaching: Verbalize Understanding, Reinforcement Needed Time/GCodes Time In: 1325 Time Out: 1350 Total Billed Treatment Time: 25 Total Billed Treatment 1,GT15, EX10 G Codes Necessary: KERLINE Han PTA Apr 03, 2018 13:58
[2018-04-03] MEDS: SENNA W/DOCUSATE (SENOKOT S) TABLET PO SCH (20:32)
[2018-04-04] MEDS: HYDROcodone/APAP 10 MG/325 MG (LORTAB) TAB PO PRN ×4 (00:43→13:21)
[2018-04-04 04:15] VITALS: BP 138/64
[2018-04-04] MEDS: LEVOTHYROXINE 125 MCG (LEVOTHROID) TABLET PO SCH (05:52)
[2018-04-04 06:21] LABS: HEMOGLOBIN 12.4 G/DL (11.5-16.0); MEAN PLATELET VOLUME 11.8 FL (7.4-10.4); RED BLOOD COUNT 3.95 10^6/uL (4.35-5.85); RED CELL DISTRIBUTION WIDTH 12.7 % (10.0-14.5); WHITE BLOOD COUNT 8.6 10^3/uL (4.3-11.0)
[2018-04-04 06:51] LABS: BUN/CREATININE RATIO 17; CALCIUM 8.5 MG/DL (8.5-10.1); CARBON DIOXIDE 26 MMOL/L (21-32); CHLORIDE 102 MMOL/L (98-107); CREATININE SERUM 0.69 MG/DL (0.60-1.30); GFR ESTIMATED > 60; GLUCOSE 102 MG/DL (70-105); POTASSIUM 3.4 MMOL/L (3.6-5.0); SODIUM 139 MMOL/L (135-145)
--- NOTE | 2018-04-04 07:16 | Progress Note (SOAP) ---
Subjective Date Seen by a Provider: Apr 04, 2018 Time Seen by a Provider: 07:14 Subjective/Events-last exam Currently has moderate pain, otherwise she is doing well. No other complaints. Hopeful for discharge today. Objective Exam Vital Signs Date Time Temp Pulse Resp B/P (MAP) Pulse Ox O2 Delivery O2 Flow Rate FiO2 04/04/18 04:15 97.7 77 18 138/64 (88) 95 Room Air 04/03/18 23:55 98.3 69 18 134/61 (85) 93 Room Air 04/03/18 21:20 Room Air 04/03/18 20:00 98.2 75 16 155/67 (96) 96 Room Air 04/03/18 16:40 98.3 71 20 131/60 (83) 94 Room Air 04/03/18 12:00 98.0 66 18 106/64 (78) 96 Room Air 04/03/18 09:00 96 Room Air 0.00 04/03/18 08:00 98.7 62 20 132/72 (92) 96 Room Air I & O 04/04/18 07:00 Intake Total 3000 ml Output Total 3450 ml Balance -450 ml Capillary Refill : General Appearance: No Apparent Distress Extremity: Normal Capillary Refill Neurologic/Psychiatric: Alert, Oriented x3, No Motor/Sensory Deficits, Normal Mood/Affect Skin: Normal Color, Warm/Dry (dressing right knee CDI) Results Lab Laboratory Tests 04/04/18 05:15: White Blood Count 8.6, Red Blood Count 3.95L, Hemoglobin 12.4, Hematocrit 36, Mean Corpuscular Volume 91, Mean Corpuscular Hemoglobin 31, Mean Corpuscular Hemoglobin Concent 34, Red Cell Distribution Width 12.7, Platelet Count 187, Mean Platelet Volume 11.8H, Sodium Level 139, Potassium Level 3.4L, Chloride Level 102, Carbon Dioxide Level 26, Anion Gap 11, Blood Urea Nitrogen 12, Creatinine 0.69, Estimat Glomerular Filtration Rate > 60, BUN/Creatinine Ratio 17, Glucose Level 102, Calcium Level 8.5 Assessment/Plan Assessment/Plan Assess & Plan/Chief Complaint A: s/p right TKA P: If she improves today from a pain control standpoint then she can be discharged. Needs home healthcare 5x/week x 2 weeks for physical therapy. remove viviana on 04/11. Patient needs education on dressing changes. Clinical Quality Measures DVT/VTE Risk/Contraindication: Risk Factor Score Per Nursin RFS Level Per Nursing on Admit: 3=High ELIAS HERNANDEZ APRN Apr 04, 2018 7:16 am
[2018-04-04] MEDS ORDERED: TRAM50TA2 PO (07:19)
[2018-04-04] MEDS ORDERED: SENN-20 PO (07:19)
[2018-04-04] MEDS ORDERED: ASPI-586 PO (07:19)
[2018-04-04] MEDS ORDERED: HYDR-3820 PO (07:19)
--- NOTE | 2018-04-04 07:23 | D/C HH Face to Face Order ---
D/C Face to Face Orders Instructions for Patient Via [facility], Patient Instructions/FollowUp: f/u 2 1/2 weeks Physician to follow Patient: Aguila Discharge Diet for Home: No Restrictions Patient Problems: Primary OA right knee s/p right TKA Goals for Patient: independence with Adl's Patient Data-Allergies,Ht & Wt Patient Allergies: Coded Allergies: No Known Drug Allergies (Unverified , 03/21/18) Height (Feet): 5 Height (Inches): 5.00 Weight (Pounds): 226 Weight (Ounces): 0.0 Home Health Need/Face to Face Date of Face to Face: Apr 04, 2018 Clinical Findings: Pain with ambulation, Unsteady gait I have seen Pt [id number]: Yes Discharged To: Home Diagnosis/Conditions: Primary OA right knee s/p right TKA Patient is Homebound due to: [place] fall risk due to instabilty, Pain w/ ambulation Homebound Status Due to the above stated illness, injury or surgical procedure (medical condition or diagnosis) and associated clinical findings, the patient is homebound because of his/her inability to leave home except with aid of a supportive device and/or person AND leaving the home requires a considerable and taxing effort or is medically contraindicated. Pt req the following assistanc: Walker Home Health Nursing Orders Home Health Services Order: Physical Therapy-Evaluate & Treat physical therapy 5x/week x 2 weeks to assist with strengthening, ROM and gait remove viviana on 04/11 and apply steri strips Home Health Infusion Therapy Site Location: Hand Therapy Orders Therapy Orders: Physical Therapy Therapy Specific Orders: Gait training, Increase strength/endurance, Restore ROM Certify Stmt I certify that this patient is under my care and that I, a nurse practitioner or a physician; a assistant gm of content & delivery working with me, had a face to face encounter that - meets the physician face to face encounter requirements with this patient as dated. ELIAS HERNANDEZ APRN Apr 04, 2018 7:23 am
[2018-04-04 08:00] VITALS: BP 142/63
[2018-04-04] MEDS: SENNA W/DOCUSATE (SENOKOT S) TABLET PO SCH (08:36)
[2018-04-04] MEDS: ENOXAPARIN 40 MG/0.4 ML (LOVENOX) SYR SC SCH (08:36)
[2018-04-04] MEDS: HYDROCHLOROTHIAZIDE 25 MG (HCTZ) TAB PO SCH (08:36)
[2018-04-04] MEDS: ASPIRIN E.C. 325 MG (ECOTRIN) TABLET PO SCH (08:36)
[2018-04-04] MEDS: amLODIPine 5 MG (NORVASC) TAB PO SCH (08:36)
[2018-04-04] MEDS: CARVEDILOL 12.5 MG (COREG) TABLET PO SCH (08:36)
[2018-04-04 11:12] VITALS: BP 148/66
--- NOTE | 2018-04-04 11:21 | Physical Therapy Daily Note ---
PT Daily Note-Current Subjective Pt was awake in bed and agreed to therapy. Pt reported that her leg felt sore today since nerve block has worn off. Pain Location: Right Location Body Site: Knee Mental Status Patient Orientation: Normal For Age Transfers Functional [place] Measure 0=Not Assessed/NA 4=Minimal Assistance 1=Total Assistance 5=Supervision or Setup 2=Maximal Assistance 6=Modified [place] 3=Moderate Assistance 7=Complete IndependenceIRFPAI Quality Coding Scale 6 Independent with activity with or without an assistive device 5 Patient requires set up or clean up by helper. Patient completes activity by themselves 4 Supervision or touching assist (CGA). [place] provide cues , steadying assist 3 The helper provides less than half the effort to complete the activity 2 The helper provides more than half the effort to complete the activity 1 Dependent. The helper does all the effort to complete an activity 7 Patient refused to complete or attempt activity 9 The patient did not perform the activity before the current illness or injury 88 Not attempted due to Medical conditions or safety concerns Transfers (B, C, W/C) (FIM): 6 Scootin Rollin Supine to/from Sit: 6 Sit to/from Stand: 6 Weight Bearing Right Lower Extremity: Right Weight Bearing/Tolerated Left Lower Extremity: Left Full Weight Bearing Gait Training Gait (FIM): 6 Distance (FIM): 3=150 ft Distance: 200' x 2 Gait Level of Assist: 6 Pt ambulated for 200ft with walker. Pt went through stair education with walker. Stair Training Stair Training: Handrails/: 1 handrail, uses walker Stairs (FIM): 2 #of Steps: 4 Stairs: Pattern: Step to Level of Assist: 4 Exercises Supine Ex: Ankle pumps, Quad Set, Heel Slides, Short Arc Quads Supine Reps: 10 Assessment Patient was able to perform all exercises and functional activities. Patient was able to ambulate for 200ft with little difficulty but stated that she was feeling tired by the time she returned to her room. Plan dismissal on this date to home with home health intervention. PT Short Term Goals Short Term Goals Time Frame: Apr 10, 2018 Transfers (B,C,W/C) (FIM): 5 Gait (FIM): 5 Gait Distance Comment: 150' Gait Level of Assist: 5 Gait Assistive Device: FWW PT Plan Treatment/Plan Treatment Plan: Continue Plan of Care Treatment Plan: Bed Mobility, Education, Functional Activity Jayy, Functional Strength, Gait, Safety, Therapeutic Exercise, Transfers Treatment Duration: Apr 10, 2018 Frequency: 11 times per week Estimated Hrs Per Day: .25 hour per day (15-30') Patient and/or Family Agrees t: Yes Time/GCodes Time In: 1005 Time Out: 1030 Total Billed Treatment Time: 25 Total Billed Treatment 1 visit Ex 10 FA 15 TORREY BRAVO PT Apr 04, 2018 11:21
--- NOTE | 2018-04-04 11:24 | Progress Note-Hospitalist ---
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 Sheehan. 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 I checked meds and labs and evaluated medical history. Subjective/Events-last exam Patient doing well No bowel movement yet Participating in therapy Pain is controlled Using incentive spirometer Likely discharge today Review of Systems Gastrointestinal: Constipation Objective Exam Vital Signs Vital Signs Date Time Temp Pulse Resp B/P (MAP) Pulse Ox O2 Delivery O2 Flow Rate FiO2 04/04/18 11:12 97.9 66 148/66 (93) 93 04/04/18 09:00 Room Air 04/04/18 08:00 18 04/03/18 09:00 0.00 Capillary Refill : General Appearance: No Apparent Distress, WD/WN, Obese Respiratory: Chest Non Tender, Lungs Clear, Normal Breath Sounds, No Accessory Muscle Use, No Respiratory Distress Cardiovascular: Regular Rate, Rhythm, No Edema, No Gallop, No JVD, No Murmur, Normal Peripheral Pulses Neurologic/Psychiatric: Alert, Oriented x3, No Motor/Sensory Deficits, Normal Mood/Affect Results/Procedures Lab Laboratory Tests 04/04/18 05:15 Patient resulted labs reviewed. Assessment/Plan Assessment and Plan Assess & Plan/Chief Complaint Assessment: Status post uncomplicated right total knee replacement by Dr. Sheehan POD # 2 Hypertension Obesity Hypothyroidism Plan: Maintain DVT prophylaxis per protocol Monitor labs Monitor hypertension Diagnosis/Problems Diagnosis/Problems (1) Primary osteoarthritis of right knee Status: Chronic (2) Hypertension Status: Chronic Qualifiers: Hypertension type: essential hypertension Qualified Codes: I10 - Essential (primary) hypertension (3) Hypothyroidism Status: Chronic Qualifiers: Hypothyroidism type: acquired Qualified Codes: E03.9 - Hypothyroidism, unspecified Clinical Quality Measures DVT/VTE Risk/Contraindication: Risk Factor Score Per Nursin RFS Level Per Nursing on Admit: 3=High JENNIFER BOYCE DO Apr 04, 2018 11:24
[2018-04-04 14:42] VITALS: BP 148/66
--- NOTE | 2018-04-05 06:56 | Discharge Summary ---
Diagnosis/Chief Complaint Date of Admission Apr 02, 2018 at 09:15 Date of Discharge Apr 04, 2018 at 14:40 Discharge Date: Apr 04, 2018 Discharge Time: 1700 Admission Diagnosis Admission Diagnosis Primary OA right knee Discharge Diagnosis Primary OA right knee s/p right TKA Reason Hospital Visit Scheduled right TKA Discharge Summary Procedures: Right total knee arthroplasty Consultations Dr. Taylor (Internal Medicine for medical management) Discharge Physical Examination Allergies: Coded Allergies: No Known Drug Allergies (Unverified , 03/21/18) Vitals & I&Os Vital Signs Date Time Temp Pulse Resp B/P (MAP) Pulse Ox O2 Delivery O2 Flow Rate FiO2 04/04/18 14:42 66 18 148/66 93 Room Air 0.00 04/04/18 11:12 97.9 General Appearance: Alert, Oriented X3 HEENT: Atraumatic, PERRLA Respiratory: Clear to Auscultation Cardiovascular: Regular Rate Abdominal: Normal Bowel Sounds, Soft Extremities: No Clubbing, No Cyanosis, Normal Pulses Skin: Other (Dressing to right knee CDI) Neuro: Normal Speech, Strength at 5/5 X4 Ext Psych/Mental Status: Mental Status NL Hospital Course The patient was seen in the clinic setting for Primary OA of the right knee. She failed conservative measures and on the date of admission she underwent a right TKA. Overall, the hospital course was uneventful. She was kept in patient for medical management, DVT prophylaxis and IV antibiotic prophylaxis. On the date of discharge her pain was controlled, she was afebrile, eating and drinking well, and ambulating well. Discharge Condition at discharge good Instructions to patient/family Please see electronic discharge instructions given to patient. Discharge Medications Reviewed and agree with Discharge Medication list on patient's Discharge Instruction sheet Clinical Quality Measures DVT/VTE Risk/Contraindication: Risk Factor Score Per Nursin RFS Level Per Nursing on Admit: 3=High ELIAS HERNANDEZ APRN Apr 05, 2018 06:56
== END 2018-04-04 14:40 | disposition home health service (06) | DRG 470 ==
LOC: EDBD → 4TH 09:15
PROVIDERS: ADMIT Orthopaedic Surgery; ATTEND Orthopaedic Surgery
PROC: 0SRC0J9 Replacement of Right Knee Joint with Synthetic Substitute, Cemented, Open Approach (ICD-10-PCS; principal; 2018-04-02 10:20)
DX: M17.0 Bilateral primary osteoarthritis of knee (principal); I10 Essential (primary) hypertension; E78.00 Pure hypercholesterolemia, unspecified; E66.9 Obesity, unspecified; Z68.37 Body mass index [BMI] 37.0-37.9, adult; M54.9 Dorsalgia, unspecified; E03.9 Hypothyroidism, unspecified; K59.00 Constipation, unspecified
CPT/HCPCS: 36415; 73560; 80048; 85027; 86850; 86900; 86901; 94664

== ENCOUNTER 2018-07-30 09:08 | Outpatient (CLI) | payer MEDICARE, OTHER ==
[~2018-07-30] VITALS: Ht 165.1 cm; Wt 102.5 kg
[~2018-07-30 09:08] MED LIST changes: -AMLO5TAB7 PO; +AMLO5TAB9 PO; +ASPI-586 PO; -GENTAMICIN 40 MG/ML 2 ML INJ SDV ONE; +HYDR-3820 PO; -NEO/POLY/BAC (NEOSPORIN) OINT 15 GM TUBE ONE; +SENN-20 PO; +TRAM50TA2 PO
[2018-07-30 09:21] VITALS: BP 117/70
[2018-07-30 09:59] LABS: BASOPHILS % (AUTO) 0 % (0-10); EOSINOPHILS # (AUTO) 0.3 10^3/uL (0.0-0.3); EOSINOPHILS % (AUTO) 5 % (0-10); HEMATOCRIT 43 % (35-52); HEMOGLOBIN 14.7 G/DL (11.5-16.0); LYMPHOCYTES # (AUTO) 1.4 X 10^3 (1.0-4.0); LYMPHOCYTES % (AUTO) 27 % (12-44); MEAN CORPUSCULAR HEMOGLOBIN 30 PG (25-34); MEAN CORPUSCULAR HGB CONC 34 G/DL (32-36); MEAN CORPUSCULAR VOLUME 89 FL (80-99); MEAN PLATELET VOLUME 11.9 FL (7.4-10.4); MONOCYTES # (AUTO) 0.4 X 10^3 (0.0-1.0); MONOCYTES % (AUTO) 8 % (0-12); NEUTROPHILS # (AUTO) 3.2 X 10^3 (1.8-7.8); NEUTROPHILS % (AUTO) 60 % (42-75); PLATELET COUNT 218 10^3/uL (130-400); RED CELL DISTRIBUTION WIDTH 13.2 % (10.0-14.5); WHITE BLOOD COUNT 5.3 10^3/uL (4.3-11.0)
[2018-07-30 10:01] LABS: BILIRUBIN,URINE NEGATIVE (NEGATIVE); CLARITY,URINE CLEAR; COLOR,URINE YELLOW; GLUCOSE, URINE (UA) NEGATIVE (NEGATIVE); KETONES,URINE NEGATIVE (NEGATIVE); LEUKOCYTE ESTERASE ,URINE 2+ (NEGATIVE); NITRITE,URINE NEGATIVE (NEGATIVE); PH,URINE 5 (5-9); PROTEIN,URINE NEGATIVE (NEGATIVE); UROBILINOGEN,URINE NORMAL (NORMAL)
[2018-07-30 10:16] LABS: BUN/CREATININE RATIO 23; CALCIUM 9.4 MG/DL (8.5-10.1); CARBON DIOXIDE 28 MMOL/L (21-32); CHLORIDE 105 MMOL/L (98-107); CREATININE SERUM 0.74 MG/DL (0.60-1.30); GFR ESTIMATED > 60; GLUCOSE 95 MG/DL (70-105); POTASSIUM 3.5 MMOL/L (3.6-5.0); SODIUM 142 MMOL/L (135-145)
[2018-07-30 10:19] LABS: BACTERIA,URINE TRACE /HPF; HYALINE CASTS, URINE RARE /LPF
[2018-07-30 10:31] LABS: PROTHROMBIN TIME PATIENT 12.9 SEC (12.2-14.7)
== END 2018-07-30 10:00 | disposition home or self-care (01) ==
LOC: PREOP 09:08
PROVIDERS: ATTEND Orthopaedic Surgery
DX: Z01.812 Encounter for preprocedural laboratory examination (principal); Z11.2 Encounter for screening for other bacterial diseases; M79.662 Pain in left lower leg; I10 Essential (primary) hypertension; R53.83 Other fatigue; Z22.322 Carrier or suspected carrier of Methicillin resistant Staphylococcus aureus
CPT/HCPCS: 36415; 80048; 81000; 85025; 85610; 86850; 86900; 86901; 87081; 87088

== ENCOUNTER 2018-08-06 06:15 | Inpatient (IN) | payer MEDICARE, OTHER ==
[~2018-08-06] VITALS: Ht 165.1 cm; Wt 102.5 kg
[2018-08-06 06:35] VITALS: BP 134/80
[2018-08-06] MEDS ORDERED: proPOfol 200 MG/20 ML (DIPRIVAN) VIAL IV ONE (06:43)
[2018-08-06] MEDS ORDERED: ONDANSETRON 4 MG/2 ML (SDV) Z0FRAN ONE (06:43)
[2018-08-06] MEDS ORDERED: LIDOCAINE PF 2% 5 ML (XYLOCAINE) VIAL ONE ×2 (06:43→06:45)
[2018-08-06] MEDS ORDERED: SEVOFLURANE (ULTANE) 15 ML INHAL SOLN ONE ×8 (06:43→10:12)
[2018-08-06] MEDS ORDERED: MIDAZOLAM 2 MG/2 ML (VERSED) VIAL ONE (06:44)
[2018-08-06] MEDS ORDERED: fentaNYL INJECTION 100 MCG/2 ML AMP ONE ×2 (06:44→08:26)
[2018-08-06] MEDS ORDERED: BUPIVACAINE 0.5% 30 ML (SENSORCAINE) VIAL ONE (06:45)
[2018-08-06] MEDS ORDERED: NEO/POLY/BAC (NEOSPORIN) OINT 15 GM TUBE ONE (06:53)
[2018-08-06] MEDS ORDERED: GENTAMICIN 40 MG/ML 2 ML INJ SDV ONE (06:53)
[2018-08-06] MEDS: LACTATED RINGERS 1,000 ML IV PRN ×2 (07:00→09:10)
[2018-08-06] MEDS ORDERED: ceFAZolin 2 GM IV Premixed 50 ML ONE (07:04)
[2018-08-06] MEDS ORDERED: ceFAZolin 2 GM IV Premixed 50 ML IV ONE (07:15)
[2018-08-06] MEDS ORDERED: GABAPENTIN 600 MG (NEURONTIN) TAB PO ONE (07:15)
[2018-08-06] MEDS ORDERED: ONDANSETRON 4 MG/2 ML (SDV) Z0FRAN IVP ONE (07:15)
[2018-08-06] MEDS ORDERED: CELECOXIB 100 MG (CeleBREX) CAP PO ONE (07:15)
[2018-08-06] MEDS ORDERED: DEXAMETHASONE 4 MG/ML SDV (DECADRON) IV ONE (07:15)
[2018-08-06 07:30] VITALS: BP 134/80
[2018-08-06] MEDS ORDERED: ROCURONIUM 10 MG/ML 5 ML SYRINGE IV ONE (07:32)
[2018-08-06] MEDS ORDERED: BISACODYL 10 MG SUPP (DULCOLAX) PR PRN (08:00)
[2018-08-06] MEDS ORDERED: PROMETHAZINE INJ 25 MG/ML (PHENERGAN) AMP IVP PRN ×2 (08:00→12:45)
[2018-08-06] MEDS ORDERED: morphine INJ 10 MG/ML 1ML (SYR OR VIAL) IVP PRN (08:00)
[2018-08-06] MEDS ORDERED: diphenhydrAMINE 50 MG/ML INJ (BENADRYL) IV PRN (08:00)
[2018-08-06] MEDS ORDERED: BACLOFEN 10 MG (LIORESAL) TAB PO PRN (08:00)
[2018-08-06] MEDS ORDERED: D5 1/2 NS 1000 ML IV SOLUTION 1,000 ML IV SCH (08:00)
[2018-08-06] MEDS ORDERED: INTRA-ARTICULAR IU ONE ×4 (08:30)
[2018-08-06] MEDS ORDERED: hydrALAZINE (APESOLINE) 20 MG/ML VIAL ONE (08:38)
[2018-08-06] MEDS ORDERED: LEVOTHYROXINE 125 MCG (LEVOTHROID) TABLET PO SCH (09:00)
[2018-08-06] MEDS ORDERED: NON-FORMULARY MEDICATION 1 EA EA (Hydrochlorothiazide 25 MG) PO SCH (09:00)
[2018-08-06] MEDS ORDERED: NON-FORMULARY MEDICATION 1 EA EA (Naproxen 500 MG) PO SCH (09:00)
[2018-08-06] MEDS ORDERED: NON-FORMULARY MEDICATION 1 EA EA (Amlodipine Besylate 5 MG) PO SCH (09:00)
[2018-08-06] MEDS ORDERED: CARVEDILOL 12.5 MG (COREG) TABLET PO SCH (09:00)
[2018-08-06] MEDS ORDERED: GLYCOPYRROLATE 0.2 MG/ML (ROBINUL) 2 ML VIAL ONE (09:24)
[2018-08-06] MEDS ORDERED: NEOSTIGMINE 1 MG/ML 5 ML SYRINGE ONE (09:24)
--- NOTE | 2018-08-06 10:21 | Progress Note-Pre Operative ---
Pre-Operative Progress Note H&P Reviewed The H&P was reviewed, patient examined and no changes noted. Date Seen by Provider: Aug 06, 2018 Time Seen by Provider: 07:40 Date H&P Reviewed: Aug 06, 2018 Time H&P Reviewed: 07:40 Pre-Operative Diagnosis: Primary Osteoarthritis Left Knee MIKHAIL MORRIS DO Aug 06, 2018 10:21
--- NOTE | 2018-08-06 10:24 | Progress Note-Post Operative ---
Post-Operative Progess Note Surgeon (s)/Construction Crew Member (s) Surgeon MIKHAIL MORRIS DO Construction Crew Member: Hilario Machado HVAC/R SERVICE TECHNICIAN-C Pre-Operative Diagnosis Primary Osteoarthritis Left Knee Post-Operative Diagnosis same Procedure & Operative Findings Date of Procedure 08/06/18 Procedure Performed/Findings Left Total Knee Arthroplasty Anesthesia Type General with femoral and IPACK regional nerve block Estimated Blood Loss Estimated blood loss (mL): 75 ml Specimens/Packing Specimens Removed none Packing: none MIKHAIL MORRIS DO Aug 06, 2018 10:24
[2018-08-06] MEDS ORDERED: fentaNYL INJECTION 100 MCG/2 ML AMP IVP ONE (10:45)
[2018-08-06] MEDS ORDERED: MEPERIDINE (DEMEROL) INJ 50 MG/ML IVP ONE (10:45)
[2018-08-06] MEDS ORDERED: ONDANSETRON 4 MG/2 ML (SDV) Z0FRAN IVP PRN (10:45)
[2018-08-06] MEDS ORDERED: morphine INJ 10 MG/ML 1ML (SYR OR VIAL) ONE (10:53)
[2018-08-06] MEDS: morphine INJ 10 MG/ML 1ML (SYR OR VIAL) IVP ONE (10:58)
[2018-08-06] MEDS ORDERED: TRANEXAMIC ACID 100 MG/ML 10 ML INJECTION IV ONE (11:08)
[2018-08-06 12:00] VITALS: BP 160/83
[2018-08-06] MEDS ORDERED: morphine INJ 4 MG/ML 1 ML (VIAL/SYRINGE) ONE (12:08)
--- NOTE | 2018-08-06 12:13 | Diagnostic Imaging Report ---
Left knee at 1042 hours. INDICATION: Postop. AP and lateral views of the left knee were received from the OR. There are no prior studies available for comparison. FINDINGS: There is a total knee prosthesis in place. The prosthetic components appear to be in good position. There is some gas in the soft tissues anterior to the knee joint and there are skin viviana along the anterior aspect of the knee joint as well. There is no fracture or acute bony abnormality identified. IMPRESSION: Stable postoperative left knee. Dictated by: Dictated on workstation # [id number]
[2018-08-06] MEDS: D5 1/2 NS 1000 ML IV SOLUTION 1,000 ML IV SCH (12:43)
[2018-08-06] MEDS: HYDROcodone/APAP 10 MG/325 MG (LORTAB) TAB PO PRN (12:51)
[2018-08-06] MEDS: HYDROCHLOROTHIAZIDE 25 MG (HCTZ) TAB PO SCH (12:51)
[2018-08-06] MEDS: amLODIPine 5 MG (NORVASC) TAB PO SCH (12:51)
[2018-08-06] MEDS: ONDANSETRON 4 MG/2 ML (SDV) Z0FRAN IVP PRN ×2 (13:58→20:33)
[2018-08-06] MEDS: DOCUSATE SODIUM 100 MG (COLACE) CAP PO SCH ×2 (14:25→21:48)
--- NOTE | 2018-08-06 14:26 | NUR ---
PT TO ROOM 431 VIA BED AT 1135 S/P LTKR. CALL LIGHT AND OTHER PERSONAL ITEMS WITHIN REACH, AT BEDSIDE. SEE INTERVENTIONS
[2018-08-06] MEDS: ASPIRIN E.C. 325 MG (ECOTRIN) TABLET PO SCH (15:05)
[2018-08-06] MEDS ORDERED: FLU QUADRIvalent (5+ YOA) 2018-2019 (AFLURIA) 0.5 ML IM ONE (15:15)
[2018-08-06 15:39] VITALS: BP 151/66
[2018-08-06] MEDS: ceFAZolin 2 GM IV Premixed 50 ML IV SCH (16:10)
[2018-08-06] MEDS: NAPROXEN 250 MG (NAPROSYN) TABLET PO SCH (17:54)
[2018-08-06 20:00] VITALS: BP 127/60
[2018-08-06] MEDS: morphine INJ 4 MG/ML 1 ML (VIAL/SYRINGE) IV PRN (20:34)
[2018-08-06] MEDS: CARVEDILOL 12.5 MG (COREG) TABLET PO SCH (21:48)
[2018-08-07] VITALS: BP 133/60
[2018-08-07] MEDS: ceFAZolin 2 GM IV Premixed 50 ML IV SCH (00:25)
--- NOTE | 2018-08-07 00:25 | OPERATIVE REPORT ---
DATE OF SERVICE: 08/06/2018 PREOPERATIVE DIAGNOSIS: Primary osteoarthritis, left knee. POSTOPERATIVE DIAGNOSIS: Primary osteoarthritis, left knee. PROCEDURE: Left total knee arthroplasty. SURGEON: Mikhail Morris DO. SHIPPING AND RECEIVING OPERATOR: ALICIA Monreal. SURGICAL SEED COLLECTOR DUTIES: Hilario Machado, certified ophthalmic surgical assistant, was utilized throughout the entire procedure for the patient positioning, soft tissue retraction, placement of total knee implants, wound closure, dressing application and the patient transfer. ANESTHESIA: General with femoral and IPACKS nerve block. ESTIMATED BLOOD LOSS: 75 mL. COMPLICATIONS: None. INDICATIONS AND FINDINGS: The patient is a 67-year-old female seen with chief complaint of progressive left knee pain nonresponsive to conservative treatment. X-rays reveal collapse of the medial compartment with a varus deformity of the left knee. The patient was taken to surgery where a total knee arthroplasty was performed on the left without complication utilizing the Biomet Nexessguard total knee system with a press fit 67.5 mm femoral component, cemented 71 mm fixed I-beam tibial component, a 34 mm 3-pronged all polyethylene cemented thin patellar component with a 12 mm anterior stabilized tibial bearing implant, Biomet bone cement was utilized. PROCEDURE IN DETAIL: The patient was seen by anesthesia preoperatively and under ultrasound guidance, a femoral and IPACKS nerve block was performed on the left to decrease postop pain and decreased amount of medication required during the surgical procedure. The patient was transferred to the operating room where general inhalation anesthetic was administered. A well-padded pneumatic tourniquet was placed about the upper aspect of the left thigh. A ChloraPrep and sterile drape of the left lower extremity was performed. The left leg was elevated, exsanguinated and the tourniquet was inflated to 300 mmHg pressure. An anterior longitudinal midline incision was made over the anterior surface of the left knee. The incision was deepened through a medial parapatellar incision. Patella was subluxed laterally. Osteophytes in the distal femur were removed with a bone rongeur. A airplane pilot commercial hole was then drilled in the distal femur. An intramedullary sha was inserted utilizing a 5 degree valgus cutting angle. A distal femoral cutting guide was assembled and a distal femoral osteotomy was completed. The distal femur was sized to a 67.5 mm femoral component. A 4-way cutting guide was assembled. Anterior, posterior and chamfer cuts of the distal femur were made. The tibia was subluxed anteriorly. Remnants of the medial and lateral menisci as well as the anterior cruciate ligament were excised. A airplane pilot commercial hole was then drilled into the proximal tibia. An intramedullary sha was inserted, measuring off the exposed bone over the proximal medial tibia. A proximal tibial cutting guide was assembled and a proximal tibial osteotomy was completed. Proximal tibia was sized to a 71 mm component. The gap sizer was inserted and the knee was noted to be stable and with full extension after additional subperiosteal dissection was performed over the proximal medial tibia. Osteophytes in the patellar reamer were removed with a bone rongeur. The posterior aspect of patella was resected through a cutting guide and drilled through the drill guide. Provisional components were inserted. The knee was cycled through a range of motion. Rotation of the tibial component was noted and marked on the proximal tibia. The proximal tibia was then broached to accept the I-beam stem portion of the implant. The bony surfaces were irrigated extensively with normal saline solution. Biomet bone cement was then mixed. This was then pressurized in the proximal tibia and the tibial component was cemented in place. The femoral component was press fit in place. The knee was taken to full extension with a provisional tibial bearing implant. The patellar component was cemented in place and held with a clamp. The cement was allowed to set. All excess cement was removed. The tourniquet was released. Hemostasis was obtained with electrocautery. The knee was additionally irrigated with normal saline solution. The provisional tibial bearing implant was removed. The anterior stabilized tibial bearing implant was then inserted and locked anteriorly with a locking bar. The knee was placed in 90 degrees of flexion. The medial retinaculum was closed with multiple interrupted [id number] sutures of #1 Vicryl reinforced with a running suture of #1 Stratafix. The subcutaneous tissues were closed in layers with 0 and 2-0 Vicryl suture. The skin was closed with stainless steel viviana and Adaptic Neosporin bulky dressing was placed about the left knee. The patient was awakened and was transferred to postoperative recovery with anesthesia personnel present in satisfactory condition. Job ID: [id number] DocumentID: [id number] Dictated Date: 08/07/2018 00:00:24 Brewing Director Date: 08/07/2018 00:24:43 Dictated By: MIKHAIL MORRIS DO
[2018-08-07] MEDS: D5 1/2 NS 1000 ML IV SOLUTION 1,000 ML IV SCH ×2 (02:03→14:10)
[2018-08-07] MEDS: HYDROcodone/APAP 10 MG/325 MG (LORTAB) TAB PO PRN ×5 (02:09→20:42)
[2018-08-07] MEDS: morphine INJ 4 MG/ML 1 ML (VIAL/SYRINGE) IV PRN ×2 (03:33→11:51)
[2018-08-07 04:00] VITALS: BP 137/64
[2018-08-07 04:35] LABS: HEMOGLOBIN 12.9 G/DL (11.5-16.0); MEAN PLATELET VOLUME 11.6 FL (7.4-10.4); RED CELL DISTRIBUTION WIDTH 12.9 % (10.0-14.5); WHITE BLOOD COUNT 10.5 10^3/uL (4.3-11.0)
[2018-08-07 04:50] LABS: BUN/CREATININE RATIO 19; CALCIUM 8.3 MG/DL (8.5-10.1); CARBON DIOXIDE 25 MMOL/L (21-32); CHLORIDE 102 MMOL/L (98-107); GFR ESTIMATED > 60; GLUCOSE 118 MG/DL (70-105); POTASSIUM 3.5 MMOL/L (3.6-5.0); SODIUM 135 MMOL/L (135-145)
[2018-08-07] MEDS: ONDANSETRON 4 MG/2 ML (SDV) Z0FRAN IVP PRN (06:00)
[2018-08-07] MEDS: LEVOTHYROXINE 125 MCG (LEVOTHROID) TABLET PO SCH (06:00)
[2018-08-07] MEDS: NAPROXEN 250 MG (NAPROSYN) TABLET PO SCH ×2 (06:29→16:38)
--- NOTE | 2018-08-07 07:30 | Anesthesia-General Post-Op ---
General Patient Condition Mental Status/LOC: Same as Preop Cardiovascular: Satisfactory Nausea/Vomiting: Absent Respiratory: Satisfactory Pain: Controlled Complications: Absent Post Op Complications Complications None Follow Up Care/Instructions Patient Instructions None needed. Anesthesia/Patient Condition Patient Condition Patient is doing well, no complaints, stable vital signs, no apparent adverse anesthesia problems. No complications reported per nursing. SUSY DURAND CRNA Aug 07, 2018 07:30
[2018-08-07 08:00] VITALS: BP 126/58
[2018-08-07] MEDS: HYDROCHLOROTHIAZIDE 25 MG (HCTZ) TAB PO SCH (08:22)
[2018-08-07] MEDS: ASPIRIN E.C. 325 MG (ECOTRIN) TABLET PO SCH (08:22)
[2018-08-07] MEDS: DOCUSATE SODIUM 100 MG (COLACE) CAP PO SCH ×2 (08:22→20:43)
[2018-08-07] MEDS: SENNA W/DOCUSATE (SENOKOT S) TABLET PO SCH ×2 (08:22→20:43)
[2018-08-07] MEDS: amLODIPine 5 MG (NORVASC) TAB PO SCH (08:23)
[2018-08-07] MEDS: CARVEDILOL 12.5 MG (COREG) TABLET PO SCH ×2 (08:23→20:42)
[2018-08-07] MEDS: ENOXAPARIN 40 MG/0.4 ML (LOVENOX) SYR SC SCH (08:23)
--- NOTE | 2018-08-07 09:15 | Consultation-Hospitalist ---
HPI History of Present Illness: HPI/Chief Complaint Chief Compliant: Status post left knee replacement by Dr. Sheehan POD# 1 HPI: This is a 67yo whose PCP is a nurse practitioner with the last name of Babatunde in [place] who presents following an uncomplicated left knee replacement. Currently pain is controlled and she is able to get up and around with therapies help and denies any chest pain or shortness of breath. I did review her home mediation and will restart all of them. Source: patient Exam Limitations: no limitations Date Seen 08/07/18 Attending Physician Petros Sheehan DO PCP No,Local Physician Referring Physician Date of Admission Aug 06, 2018 at 06:15 Home Medications & Allergies Home Medications Reviewed patient Home Medication Reconciliation performed by pharmacy medication reconciliations fingerprint technician and/or nursing. Patients Allergies have been reviewed. 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) Alcohol Use: Denies Use Number of Drinks Today: Alcohol Beverage of Choice: Wine Recreational Drug Use: No Smoking Status: Never a Smoker Physical Abuse Screen: No Sexual Abuse: No Recent Foreign Travel: No Contact w/other who traveled: No Recent Hopitalizations: No Recent Infectious Disease Expo: No Seasonal Allergies Seasonal Allergies: Yes Past Medical History Surgeries: Orthopedic Currently Using CPAP: No Currently Using BIPAP: No Cardiac: Hypertension Musculoskeletal: Arthritis Endocrine: Hypothyroidsim History of Blood Disorders: No Family History Cardiovascular disease 19 FATHER FH: prostate cancer 19 FATHER Hypertension 19 FATHER 19 MOTHER Myocardial infarction 19 FATHER 19 MOTHER Hypertension Review of Systems Constitutional: see HPI EENTM: no symptoms reported Respiratory: no symptoms reported Cardiovascular: no symptoms reported Gastrointestinal: no symptoms reported Genitourinary: no symptoms reported Musculoskeletal: joint pain Skin: no symptoms reported Psychiatric/Neurological: No Symptoms Reported All Other Systems Reviewed Negative Unless Noted: Yes Physical Exam Physical Exam Vital Signs Vital Signs - First Documented 08/06/18 06:35 Temp 97.8 Pulse 59 Resp 20 B/P (MAP) 134/80 Pulse Ox 96 O2 Delivery Room Air Capillary Refill : Height, Weight, BMI Height: 5'5.00" Weight: 226lbs. 0.0oz. 102.083808ad; 37.6 BMI Method: General Appearance: No Apparent Distress, WD/WN, Chronically ill Eyes: Bilateral Eye Normal Inspection, Bilateral Eye PERRL HEENT: PERRL/EOMI, Normal ENT Inspection, Pharynx Normal Neck: Full Range of Motion, Normal Inspection, Non Tender, Supple, Carotid Bruit Respiratory: Chest Non Tender, Lungs Clear, Normal Breath Sounds, No Accessory Muscle Use, No Respiratory Distress Cardiovascular: Regular Rate, Rhythm, No Edema, No Gallop, No JVD, No Murmur, Normal Peripheral Pulses Gastrointestinal: Normal Bowel Sounds, No Organomegaly, No Pulsatile Mass, Non Tender, Soft Back: Normal Inspection, No CVA Tenderness, No Vertebral Tenderness Extremity: Normal Capillary Refill, Normal Inspection, Normal Range of Motion ( left leg in CPM machine), Non Tender, No Calf Tenderness, No Pedal Edema Neurologic/Psychiatric: Alert, Oriented x3, No Motor/Sensory Deficits, Normal Mood/Affect Skin: Normal Color, Warm/Dry Lymphatic: No Adenopathy Results Results/Procedures Labs Laboratory Tests 08/07/18 04:20 Patient resulted labs reviewed. Assessment/Plan Assessment and Plan Assess & Plan/Chief Complaint Assessment: Left knee replacement POD # 1 uncomplicated HTN Hypothyroidism Plan: Pain control DVT PPx Monitor BP Diagnosis/Problems Diagnosis/Problems (1) Status post left knee replacement Status: Acute (2) Primary osteoarthritis of left knee Status: Chronic (3) Hypothyroidism Status: Chronic Qualifiers: Hypothyroidism type: acquired Qualified Codes: E03.9 - Hypothyroidism, unspecified (4) Hypertension Status: Chronic Qualifiers: Hypertension type: essential hypertension Qualified Codes: I10 - Essential (primary) hypertension Clinical Quality Measures DVT/VTE Risk/Contraindication: Risk Factor Score Per Nursin RFS Level Per Nursing on Admit: 4+=Very High JENNIFER BOYCE DO Aug 07, 2018 09:15
--- NOTE | 2018-08-07 09:55 | NUR ---
CM/SS spoke with the patient in regards to the SS consult. CPM is set up with [facility] and will be delivered this day to the hospital. Patient would like to have [facility] for [facility] as she had them with the previous knee. Will contact [facility] at time of dc and supply all necessary information to arrange services.
--- NOTE | 2018-08-07 09:56 | Occupational Therapy Eval ---
OT Evaluation-General/PLF Medical Diagnosis Admission Date Aug 06, 2018 at 06:15 Medical Diagnosis: left TKA Onset Date: Aug 06, 2018 Therapy Diagnosis Therapy Diagnosis: decreased self care skills Height/Weight Height (Feet): 5 Height (Inches): 5.00 Weight (Pounds): 226 Weight (Ounces): 0.0 Precautions Precautions/Isolations: Standard Precautions Safety Interventions: None Medical History Pertinent Medical History: Arthritis, HTN, Hypothroidism Additional Medical History Right TKA Current History Pt s/p elective left TKA Reviewed History: Yes Social History Home: Multilevel (can stay on main level) Current Living Status: Spouse Entry Into Home: Stairs With Railing Steps Into Home: 4 ADL-Prior Level of Function Therapy Code Descriptions/Definitions Functional [place] Measure: 0=Not Assessed/NA 4=Minimal Assistance 1=Total Assistance 5=Supervision or Setup 2=Maximal Assistance 6=Modified [place] 3=Moderate Assistance 7=Complete [place] Therapy Quality Codes: 6 Independent with activity with or without an assistive device 5 Patient requires set up or clean up by helper. Patient completes activity by themselves 4 Supervision or touching assist (CGA). [place] provide cues , steadying assist 3 The helper provides less than half the effort to complete the activity 2 The helper provides more than half the effort to complete the activity 1 Dependent. The helper does all the effort to complete an activity 7 Patient refused to complete or attempt activity 9 The patient did not perform the activity before the current illness or injury 88 Not attempted due to Medical conditions or safety concerns Functional Abilities and Goals: Independent: Patient completed the activities by him/herself, with or without an assistive device, with no assistance from a helper. Needed Some Help: Patient needed partial assistance from another person to complete activities. Dependent: A helper completed the activities for the patient. Unknown: Not Applicable: ADL PLOF Comments Pt reports being independent with self care and mobility Self Care: Independent Functional Cognition: Independent DME/Equipment: Bath Chair, Shower, Tall Toilet Has a FWW and cane Drive Self: Yes OT Current Status Subjective Pt in bed, agrees to therapy. Reports minimal pain in left knee. Mental Status/Objective Patient Orientation: Person, Place, Time, Situation Attachments: IV Current Glasses/Contacts: Yes Hearing Aids: No Dentures/Partials: No Hand Dominance: Right Upper Extremity ROM Grossly WFL Upper Extremity Coordination Intact ADL-Treatment ADL-Current Pt supine to sit with SBA and increased time. Pt completed grooming tasks while seated EOB. Pt brushed teeth and washed face with set up. Pt threaded right LE into underwear, but required minimal assistance to thread left LE. Stood with min assist to complete pant hike. Pt sitting EOB with PT present after session. Therapy Code Descriptions/Definitions Functional [place] Measure: 0=Not Assessed/NA 4=Minimal Assistance 1=Total Assistance 5=Supervision or Setup 2=Maximal Assistance 6=Modified [place] 3=Moderate Assistance 7=Complete [place] Therapy Quality Codes: 6 Independent with activity with or without an assistive device 5 Patient requires set up or clean up by helper. Patient completes activity by themselves 4 Supervision or touching assist (CGA). [place] provide cues , steadying assist 3 The helper provides less than half the effort to complete the activity 2 The helper provides more than half the effort to complete the activity 1 Dependent. The helper does all the effort to complete an activity 7 Patient refused to complete or attempt activity 9 The patient did not perform the activity before the current illness or injury 88 Not attempted due to Medical conditions or safety concerns Grooming (FIM): 5 Lower Body Dressing (FIM): 4 Education OT Patient Education: Rehab process Teaching Recipient: Patient Teaching Methods: Discussion Response to Teaching: Verbalize Understanding OT Short Term Goals Short Term Goals 1=Demonstrate adherence to instructed precautions during ADL tasks. 2=Patient will verbalize/demonstrate understanding of assistive devices/ modifications for ADL. 3=Patient will improve strength/tolerance for activity to enable patient to perform ADL's. OT Usp Goals Usp Goals Time Frame: Aug 14, 2018 Grooming(FIM): 6 Bathing(FIM): 5 Upper Body Dressing(FIM): 6 Lower Body Dressing(FIM): 5 Toileting(FIM): 6 Toilet/Commode Transfer(FIM): 6 Additional Goals: 1-Demonstrate ADL Tasks, 2-Verbalize Understanding, 3- ImproveStrength/Jayy 1=Demonstrate adherence to instructed precautions during ADL tasks. 2=Patient will verbalize/demonstrate understanding of assistive devices/ modifications for ADL. 3=Patient will improve strength/tolerance for activity to enable patient to perform ADL's. OT Education/Plan Problem List/Assessment Assessment: Dependent Transfers, Impaired Self-Care Skills Pt s/p elective left TKA with decreased mobility and ADL functioning. Pt to benefit from skilled OT intervention for ADL training, transfers, and home safety education to increase level of independence and allow safe discharge home with spouse. Discharge Recommendations Plan/Recommendations: Continue POC Treatment Plan/Plan of Care Treatment,Training & Education: Yes Patient would benefit from OT for education, treatment and training to promote independence in ADL's, mobility, safety and/or upper extremity function for ADL' s. Plan of Care: ADL Retraining, Functional Mobility, UE Funct Exercise/Act Treatment Duration: Aug 14, 2018 Frequency: 5 times per week Estimated Hrs Per Day: .25 hour per day Rehab Potential: Good Time/GCodes Start Time: 08:39 Stop Time: 09:05 Total Time Billed (hr/min): 26 Billed Treatment Time 1 visit, EVL(15minutes), ADL(11minutes) DANIEL LEUNG OT Aug 07, 2018 09:56
--- NOTE | 2018-08-07 09:59 | Physical Therapy Evaluation ---
PT Evaluation-General Medical Diagnosis Admission Date Aug 06, 2018 at 06:15 Medical Diagnosis: left TKA Onset Date: Aug 06, 2018 Therapy Diagnosis Therapy Diagnosis: decreased ROM, decreased mobility Height/Weight Height (Feet): 5 Height (Inches): 5.00 Weight (Pounds): 226 Weight (Ounces): 0.0 Precautions Precautions/Isolations: Standard Precautions Weight Bear Status Right Lower Extremity: Right Full Weight Bearing Left Lower Extremity: Left Full Weight Bearing Referral Physician: Hilario Machado APRN Reason for Referral: Evaluation/Treatment Medical History Pertinent Medical History: Arthritis, HTN, Hypothroidism Additional Medical History R TKA Reviewed History: Yes Social History Home: Single Level Current Living Status: Spouse Entry Into Home: Stairs With Railing PT Steps Into Home: 5 Prior/Core FIM Prior Level of Function Therapy Code Descriptions/Definitions Functional [place] Measure: 0=Not Assessed/NA 4=Minimal Assistance 1=Total Assistance 5=Supervision or Setup 2=Maximal Assistance 6=Modified [place] 3=Moderate Assistance 7=Complete [place] Therapy Quality Codes: 6 Independent with activity with or without an assistive device 5 Patient requires set up or clean up by helper. Patient completes activity by themselves 4 Supervision or touching assist (CGA). [place] provide cues , steadying assist 3 The helper provides less than half the effort to complete the activity 2 The helper provides more than half the effort to complete the activity 1 Dependent. The helper does all the effort to complete an activity 7 Patient refused to complete or attempt activity 9 The patient did not perform the activity before the current illness or injury 88 Not attempted due to Medical conditions or safety concerns Functional Abilities and Goals: Independent: Patient completed the activities by him/herself, with or without an assistive device, with no assistance from a helper. Needed Some Help: Patient needed partial assistance from another person to complete activities. Dependent: A helper completed the activities for the patient. Unknown: Not Applicable: Bed Mobility: 7 Transfers (B,C,W/C) (FIM): 7 Gait: 7 Stairs: 7 Indoor Mobility (Ambulation): Independent Stairs: Independent Prior Devices Use: None PT Evaluation-Current Subjective Pt is EOB just finished with OT and agrees to PT. Pain Numeric Pain Scale: 5-Moderate Pain Location: Left Location Body Site: Knee Pt/Family Goals Pt to return home with spouse. Objective Patient Orientation: Person, Place, Situation Attachments: IV ROM/Strength ROM Lower Extremities RLE WNL; LLE flex 55 ext +5 Strength Lower Extremities NT Integumentary/Posture Bowel Incontinence: No Bladder Incontinence: No Neuromuscular (Tone, Coordination, Reflexes) NT Sensory Vision: Functional Hearing: Functional Transfers Therapy Code Descriptions/Definitions Functional [place] Measure: 0=Not Assessed/NA 4=Minimal Assistance 1=Total Assistance 5=Supervision or Setup 2=Maximal Assistance 6=Modified [place] 3=Moderate Assistance 7=Complete [place] Transfers (B, C, W/C) (FIM): 4 Scootin Rollin Supine to/from Sit: 5 Sit to/from Stand: 4 Gait Mode of Locomotion: Walk Anticipated Mode of Locomotion: Walk Gait (FIM): 2 Distance (FIM): 0=528-34 ft Distance: 50' Gait Level of Assist: 4 Gait Persons Needed: 1 Gait Assistive Device: FWW Balance Sitting Static: Good Sitting Dynamic: Good Standing Static: Good Standing Dynamic: Good Assessment/Needs Pt EOB and is CGA with sit<>stand to FWW. Pt required VC for hand placement for safety. Pt able to amb 50' with FWW and CGA. Pt able to perform bed mobility SBA. Pt performed supine LE ex (AP, HS, SAQ, QS, SLR) x10 reps. Pt is on CPM with Flex 50 and ext -2. Pt in bed with all needs met. Rehab Potential: Good Post Rehab Potential-Barriers: co-morbidities PT Short Term Goals Short Term Goals Time Frame: Aug 14, 2018 Transfers (B,C,W/C) (FIM): 5 Gait (FIM): 2 Distance (FIM): 3=584-32 ft Gait Distance Comment: 125' Gait Level of Assist: 5 Gait Assistive Device: FWW Stairs (FIM): 2 # of Steps: 5 Stairs Level of Assist: 4 PT Plan Problem List Problem List: Activity Tolerance, Functional Strength, Safety, Balance, Gait, Transfer, Bed Mobility, ROM Treatment/Plan Treatment Plan: Continue Plan of Care Treatment Plan: Bed Mobility, Education, Functional Activity Jayy, Functional Strength, Gait, Safety, Therapeutic Exercise, Transfers Treatment Duration: Aug 14, 2018 Frequency: 11 times per week Estimated Hrs Per Day: .25 hour per day Patient and/or Family Agrees t: Yes Safety Risks/Education Patient Education: Gait Training, Transfer Techniques, Correct Positioning, Safety Issues Teaching Recipient: Patient Teaching Methods: Demonstration, Discussion Response to Teaching: Reinforcement Needed Discharge Recommendations Plan Patient will perform bed mobility and transfer training, balance and endurance training, functional strengthening, stair training, gait training, and education , to improve functional mobility and independence at home Therapy D/C Recommendations: Home w/ Family Support, Physical Therapy Home Care Time/GCodes Time In: 906 Time Out: 936 Total Billed Treatment Time: 30 Total Billed Treatment 1 visit EVL 10 min EX 20 min ANNE MARIE WATTERS PT Aug 07, 2018 09:59
[2018-08-07 12:00] VITALS: BP 121/57
--- NOTE | 2018-08-07 12:03 | Progress Note (SOAP) ---
Subjective Date Seen by a Provider: Aug 07, 2018 Time Seen by a Provider: 11:58 Subjective/Events-last exam Patient complaining of pain rating it at an 8. Block wore off by noon yesterday Review of Systems Musculoskeletal: leg pain Dressing dry left knee Focused Exam Respiratory: Lungs Clear Cardiovascular: No Edema Peripheral Pulses: 2+ Left Dors-Pedis (L) Skin: warm/dry Objective Exam Vital Signs Date Time Temp Pulse Resp B/P (MAP) Pulse Ox O2 Delivery O2 Flow Rate FiO2 08/07/18 08:00 98.4 68 18 126/58 (80) 95 Room Air 08/07/18 07:34 94 Room Air 08/07/18 04:00 98.1 74 16 137/64 (88) 93 Room Air 08/07/18 00:00 98.9 76 20 133/60 (84) 94 Room Air 08/06/18 20:00 97.9 73 18 127/60 (82) 94 Room Air 08/06/18 20:00 94 Room Air 08/06/18 15:39 97.7 74 18 151/66 (94) 94 Room Air 08/06/18 12:00 97.8 69 20 160/83 (108) 99 Room Air 08/06/18 12:00 96 Nasal Cannula 2.00 I & O 08/07/18 07:00 Intake Total 2930 ml Output Total 700 ml Balance 2230 ml Capillary Refill : General Appearance: No Apparent Distress HEENT: No PERRL/EOMI, No TMs Normal, No Normal ENT Inspection, No Pharynx Normal, No Moist Mucous Membranes, No Pale Conjunctivae (L), No Pale Conjunctivae (R), No Pharyngeal Erythema, No Photophobia, No Scleral Icterus (L) , No Scleral Icterus (R), No TM Abnormal (L), No TM Abnormal (R), No Tonsillar Exudate, No Tonsillar Enlargement, No Other Cardiovascular: Regular Rate, Rhythm Gastrointestinal: non tender Neurologic/Psychiatric: Alert Skin: Warm/Dry Results Lab Laboratory Tests 08/07/18 04:20: White Blood Count 10.5, Red Blood Count 4.25L, Hemoglobin 12.9, Hematocrit 38, Mean Corpuscular Volume 89, Mean Corpuscular Hemoglobin 30, Mean Corpuscular Hemoglobin Concent 34, Red Cell Distribution Width 12.9, Platelet Count 207, Mean Platelet Volume 11.6H, Sodium Level 135, Potassium Level 3.5L, Chloride Level 102, Carbon Dioxide Level 25, Anion Gap 8, Blood Urea Nitrogen 13, Creatinine 0.70, Estimat Glomerular Filtration Rate > 60, BUN/Creatinine Ratio 19, Glucose Level 118H, Calcium Level 8.3L Assessment/Plan Assessment/Plan Assess & Plan/Chief Complaint Status post Left Total Knee Arthroplasty Continue PT Strict regimen of pain meds Final Diagnosis Primary Osteoarthritis Left Knee Clinical Quality Measures DVT/VTE Risk/Contraindication: Risk Factor Score Per Nursin RFS Level Per Nursing on Admit: 4+=Very High MIKHAIL MORRIS DO Aug 07, 2018 12:03
--- NOTE | 2018-08-07 13:31 | Physical Therapy Daily Note ---
PT Daily Note-Current Subjective Pt. in bed, states pain in her left knee is at 7/10. States she would rather not walk, just wants to put CPM on. This [place] MAN shares that it is best to move, will likely reduce her pain and is good to prevent blood clots and pneumonia. pt. agrees to Rx. States pain is no different after Rx. Pain Numeric Pain Scale: 7 Location: Left Location Body Site: Knee Pain Description: Throbbing Mental Status Patient Orientation: Person, Place, Time, Situation Attachments: SCD's, IV Transfers Therapy Code Descriptions/Definitions Functional [place] Measure: 0=Not Assessed/NA 4=Minimal Assistance 1=Total Assistance 5=Supervision or Setup 2=Maximal Assistance 6=Modified [place] 3=Moderate Assistance 7=Complete [place] Therapy Quality Codes: 6 Independent with activity with or without an assistive device 5 Patient requires set up or clean up by helper. Patient completes activity by themselves 4 Supervision or touching assist (CGA). [place] provide cues , steadying assist 3 The helper provides less than half the effort to complete the activity 2 The helper provides more than half the effort to complete the activity 1 Dependent. The helper does all the effort to complete an activity 7 Patient refused to complete or attempt activity 9 The patient did not perform the activity before the current illness or injury 88 Not attempted due to Medical conditions or safety concerns Transfers (B, C, W/C) (FIM): 4 Scootin Rollin Supine to/from Sit: 5 Sit to/from Stand: 4 Weight Bearing Right Lower Extremity: Right Full Weight Bearing Left Lower Extremity: Left Full Weight Bearing Gait Training Gait (FIM): 4 Distance (FIM): 3=150 ft (150x1. 25) Gait Level of Assist: 4 Gait Persons Needed: 1 Gait Assistive Device: FWW CGA for gait 125 ft, 25 ft, no LOB good sequencing , needs reminders that she can push FWW. Pt. tends to lift between steps Exercises Supine Ex: Quad Set, Heel Slides (assisted ), Short Arc Quads (assisted) Supine Reps: 10 Seated Therapy Exercises: Ankle pumps, Long arc quads Seated Reps: 8 Treatments CPM and polar pack insitu after Rx Assessment Current Status: Good Progress PT Short Term Goals Short Term Goals Time Frame: Aug 14, 2018 Transfers (B,C,W/C) (FIM): 5 Gait (FIM): 2 Distance (FIM): 2=172-57 ft Gait Distance Comment: 125' Gait Level of Assist: 5 Gait Assistive Device: FWW Stairs (FIM): 2 # of Steps: 5 Stairs Level of Assist: 4 PT Plan Treatment/Plan Treatment Plan: Continue Plan of Care Treatment Plan: Bed Mobility, Education, Functional Activity Jayy, Functional Strength, Gait, Safety, Therapeutic Exercise, Transfers Treatment Duration: Aug 14, 2018 Frequency: 11 times per week Estimated Hrs Per Day: .25 hour per day Patient and/or Family Agrees t: Yes Safety Risks/Education Patient Education: Gait Training, Transfer Techniques, Correct Positioning, Safety Issues Teaching Recipient: Patient Teaching Methods: Demonstration, Discussion Response to Teaching: Verbalize Understanding, Return Demonstration, Reinforcement Needed Time/GCodes Time In: 1300 Time Out: 1325 Total Billed Treatment Time: 25 Total Billed Treatment 1,EX10m,GT15m G Codes Necessary: KERLINE Han [place] MAN Aug 07, 2018 13:31
[2018-08-07 16:00] VITALS: BP 160/73
[2018-08-07 20:00] VITALS: BP 147/64
[2018-08-08] VITALS: BP 155/68
[2018-08-08] MEDS: HYDROcodone/APAP 10 MG/325 MG (LORTAB) TAB PO PRN ×4 (00:43→13:42)
[2018-08-08] MEDS: D5 1/2 NS 1000 ML IV SOLUTION 1,000 ML IV SCH (03:23)
--- NOTE | 2018-08-08 05:20 | Progress Note-Hospitalist ---
Subjective HPI/CC On Admission Date Seen by Provider: Aug 08, 2018 Time Seen by Provider: 09:30 Chief Compliant: Status post left knee replacement by Dr. Sheehan POD# 1 HPI: This is a 67yo whose PCP is a nurse practitioner with the last name of Babatunde in [place] who presents following an uncomplicated left knee replacement. Currently pain is controlled and she is able to get up and around with therapies help and denies any chest pain or shortness of breath. I did review her home mediation and will restart all of them. Subjective/Events-last exam Pt had a good night Pain is controlled No BM so will initiate Lactulose Potassium is 3.1 so ordered supplement Restarted all of her home medications Review of Systems Gastrointestinal: Constipation Musculoskeletal: leg pain Objective Exam Vital Signs Vital Signs Date Time Temp Pulse Resp B/P (MAP) Pulse Ox O2 Delivery O2 Flow Rate FiO2 08/08/18 15:45 2 08:00 97.8 69 18 94 Room Air 08/06/18 12:00 2.00 Capillary Refill : General Appearance: No Apparent Distress, WD/WN, Chronically ill HEENT: PERRL/EOMI, Normal ENT Inspection, Pharynx Normal Neck: Full Range of Motion, Normal Inspection, Non Tender, Supple, Carotid Bruit Respiratory: Chest Non Tender, Lungs Clear, Normal Breath Sounds, No Accessory Muscle Use, No Respiratory Distress Cardiovascular: Regular Rate, Rhythm, No Edema, No Gallop, No JVD, No Murmur, Normal Peripheral Pulses Gastrointestinal: Normal Bowel Sounds, No Organomegaly, No Pulsatile Mass, Non Tender, Soft Back: Normal Inspection, No CVA Tenderness, No Vertebral Tenderness Extremity: Normal Capillary Refill, Normal Inspection, Normal Range of Motion ( left leg in CPM machine), Non Tender, No Calf Tenderness, No Pedal Edema Neurologic/Psychiatric: Alert, Oriented x3, No Motor/Sensory Deficits, Normal Mood/Affect Skin: Normal Color, Warm/Dry Lymphatic: No Adenopathy Results/Procedures Lab Patient resulted labs reviewed. Assessment/Plan Assessment and Plan Assess & Plan/Chief Complaint Assessment: Left knee replacement POD # 2 uncomplicated HTN Hypothyroidism Hypokalemia Constipation Plan: Pain control DVT PPx Monitor BP Replace potassium Diagnosis/Problems Diagnosis/Problems (1) Status post left knee replacement Status: Acute (2) Primary osteoarthritis of left knee Status: Chronic (3) Hypothyroidism Status: Chronic Qualifiers: Hypothyroidism type: acquired Qualified Codes: E03.9 - Hypothyroidism, unspecified (4) Hypertension Status: Chronic Qualifiers: Hypertension type: essential hypertension Qualified Codes: I10 - Essential (primary) hypertension Clinical Quality Measures DVT/VTE Risk/Contraindication: Risk Factor Score Per Nursin RFS Level Per Nursing on Admit: 4+=Very High JENNIFER BOYCE DO Aug 08, 2018 05:20
[2018-08-08] MEDS: LEVOTHYROXINE 125 MCG (LEVOTHROID) TABLET PO SCH (05:25)
[2018-08-08] MEDS: NAPROXEN 250 MG (NAPROSYN) TABLET PO SCH (05:26)
[2018-08-08 05:30] LABS: HEMOGLOBIN 11.7 G/DL (11.5-16.0); MEAN PLATELET VOLUME 11.8 FL (7.4-10.4); RED CELL DISTRIBUTION WIDTH 13.3 % (10.0-14.5); WHITE BLOOD COUNT 7.3 10^3/uL (4.3-11.0)
[2018-08-08 05:47] LABS: BUN/CREATININE RATIO 19; CALCIUM 8.3 MG/DL (8.5-10.1); CARBON DIOXIDE 25 MMOL/L (21-32); CHLORIDE 106 MMOL/L (98-107); CREATININE SERUM 0.68 MG/DL (0.60-1.30); GFR ESTIMATED > 60; GLUCOSE 105 MG/DL (70-105); POTASSIUM 3.4 MMOL/L (3.6-5.0); SODIUM 139 MMOL/L (135-145)
--- NOTE | 2018-08-08 07:02 | Progress Note (SOAP) ---
Subjective Date Seen by a Provider: Aug 08, 2018 Time Seen by a Provider: 07:00 Subjective/Events-last exam POD 2 s/p Left TKA, currently doing fairly well, Pain control is fair with meds , Ambulating well. Objective Exam Vital Signs Date Time Temp Pulse Resp B/P (MAP) Pulse Ox O2 Delivery O2 Flow Rate FiO2 08/08/18 00:00 97.6 71 20 155/68 (97) 96 Room Air 08/07/18 20:00 96 Room Air 08/07/18 20:00 98.1 62 20 147/64 (91) 93 Room Air 08/07/18 16:00 98.6 72 18 160/73 (102) 96 Room Air 08/07/18 12:00 97.9 75 18 121/57 (78) 92 Room Air 08/07/18 08:00 98.4 68 18 126/58 (80) 95 Room Air 08/07/18 07:34 94 Room Air I & O 08/08/18 07:00 Intake Total 3890 ml Output Total 3400 ml Balance 490 ml Capillary Refill : General Appearance: No Apparent Distress Extremity: Normal Capillary Refill, Normal Inspection, No Calf Tenderness, No Pedal Edema Neurologic/Psychiatric: Alert, Oriented x3, No Motor/Sensory Deficits, Normal Mood/Affect Skin: Normal Color, Warm/Dry (dressing to left knee is CDI) Results Lab Laboratory Tests 08/08/18 05:09: White Blood Count 7.3, Red Blood Count 3.80L, Hemoglobin 11.7, Hematocrit 34L, Mean Corpuscular Volume 90, Mean Corpuscular Hemoglobin 31, Mean Corpuscular Hemoglobin Concent 34, Red Cell Distribution Width 13.3, Platelet Count 170, Mean Platelet Volume 11.8H, Sodium Level 139, Potassium Level 3.4L, Chloride Level 106, Carbon Dioxide Level 25, Anion Gap 8, Blood Urea Nitrogen 13, Creatinine 0.68, Estimat Glomerular Filtration Rate > 60, BUN/Creatinine Ratio 19, Glucose Level 105, Calcium Level 8.3L Assessment/Plan Assessment/Plan Assess & Plan/Chief Complaint A: POD 2 s/p left TKA P: Plan for discharge this afternoon or tomorrow morning with home healthcare physical therapy 5x/week x 2 weeks. YAMILEX michelle on 08/15/18 Clinical Quality Measures DVT/VTE Risk/Contraindication: Risk Factor Score Per Nursin RFS Level Per Nursing on Admit: 4+=Very High ELIAS HERNANDEZ APRN Aug 08, 2018 07:02
[2018-08-08] MEDS ORDERED: SENN-20 PO (07:08)
[2018-08-08] MEDS ORDERED: TRAM50TA2 PO (07:08)
[2018-08-08] MEDS ORDERED: HYDR-3820 PO (07:08)
--- NOTE | 2018-08-08 07:13 | D/C HH Face to Face Order ---
D/C Face to Face Orders Instructions for Patient Via [facility], Patient Instructions/FollowUp: f/u in 2 weeks in [place] office Physician to follow Patient: Aguila Discharge Diet for Home: No Restrictions Patient Problems: Primary OA left knee s/p left TKA Goals for Patient: [place] with ADL, restore knee strength and ROM Patient Data-Allergies,Ht & Wt Patient Allergies: Coded Allergies: No Known Drug Allergies (Unverified , 03/21/18) Height (Feet): 5 Height (Inches): 5.00 Weight (Pounds): 226 Weight (Ounces): 0.0 Home Health Need/Face to Face Date of Face to Face: Aug 08, 2018 Clinical Findings: Muscle weakness, Pain with ambulation, Unsteady gait I have seen Pt [id number]: Yes Discharged To: Home Diagnosis/Conditions: Primary OA left knee s/p left TKA Patient is Homebound due to: [place] fall risk due to instabilty, Pain w/ ambulation Homebound Status Due to the above stated illness, injury or surgical procedure (medical condition or diagnosis) and associated clinical findings, the patient is homebound because of his/her inability to leave home except with aid of a supportive device and/or person AND leaving the home requires a considerable and taxing effort or is medically contraindicated. Pt req the following assistanc: Cane, Walker Home Health Nursing Orders Home Health Services Order: Physical Therapy-Evaluate & Treat physical therapy 5x/week x 2 weeks to treat gait and knee strength/ROM remove viviana on 08/15/18 Home Health Infusion Therapy Line Start Date: Aug 06, 2018 Line Type: Peripheral IV Site Location: Wrist Therapy Orders Therapy Orders: Physical Therapy Therapy Specific Orders: Gait training, Increase strength/endurance, Restore ROM WBAT with Front wheeled walker CPM 6 hrs per day, increase 5-10 deg per day [facility] care unit bilateral LESLI leon Certify Stmt I certify that this patient is under my care and that I, a nurse practitioner or a physician; a assistant vice president working with me, had a face to face encounter that - meets the physician face to face encounter requirements with this patient as dated. ELIAS HERNANDEZ APRN Aug 08, 2018 07:13
[2018-08-08 08:00] VITALS: BP 126/60
[2018-08-08] MEDS ORDERED: KCL 10 MEQ TAB (MICRO K) PO NR (08:30)
--- NOTE | 2018-08-08 09:10 | Occupational Ther Daily Note ---
OT Current Status-Daily Note Subjective Pt alert, lying in bed. Pt agrees to therapy. No c/o pain lying in bed, rated pain with movement at 5/10. Nrsg in room. Mental Status/Objective Patient Orientation: Person, Place, Time, Situation Therapy Code Descriptions/Definitions Functional [place] Measure: 0=Not Assessed/NA 4=Minimal Assistance 1=Total Assistance 5=Supervision or Setup 2=Maximal Assistance 6=Modified [place] 3=Moderate Assistance 7=Complete [place] Attachments: IV ADL-Treatment Pt agrees to sponge bath. CGA for supine to EOB. CGA sit to stand and ambulating to restroom. Pt able to transfer to toilet with CGA using FWW and BSC. Pt completed toileting with SBA. Pt doffed/donned underwear by self after set up. Pt stood at sink to complete grooming and sponge bath with SBA. Pt then ambulated to recliner after therapy. Call light/phone in reach. All needs met in room. Ice pack placed on R knee. Grooming (FIM): 5 Toileting (FIM): 5 Transfers (B, C, W/C) (FIM): 4 Toilet/Commode Transfer (FIM): 4 OT Short Term Goals Short Term Goals Transfers (B,C,W/C) (FIM): 5 1=Demonstrate adherence to instructed precautions during ADL tasks. 2=Patient will verbalize/demonstrate understanding of assistive devices/ modifications for ADL. 3=Patient will improve strength/tolerance for activity to enable patient to perform ADL's. OT Seamless Tube Drawer Goals Seamless Tube Drawer Goals Time Frame: Aug 14, 2018 Grooming(FIM): 6 Bathing(FIM): 5 Upper Body Dressing(FIM): 6 Lower Body Dressing(FIM): 5 Toileting(FIM): 6 Toilet/Commode Transfer(FIM): 6 Additional Goals: 1-Demonstrate ADL Tasks, 2-Verbalize Understanding, 3- ImproveStrength/Jayy 1=Demonstrate adherence to instructed precautions during ADL tasks. 2=Patient will verbalize/demonstrate understanding of assistive devices/ modifications for ADL. 3=Patient will improve strength/tolerance for activity to enable patient to perform ADL's. OT Education/Plan Problem List/Assessment Pt s/p elective left TKA with decreased mobility and ADL functioning. Pt to benefit from skilled OT intervention for ADL training, transfers, and home safety education to increase level of independence and allow safe discharge home with spouse. Discharge Recommendations Plan/Recommendations: Continue POC Treatment Plan/Plan of Care Patient would benefit from OT for education, treatment and training to promote independence in ADL's, mobility, safety and/or upper extremity function for ADL' s. Plan of Care: ADL Retraining, Functional Mobility, UE Funct Exercise/Act Treatment Duration: Aug 14, 2018 Frequency: 5 times per week Estimated Hrs Per Day: .25 hour per day Rehab Potential: Good Time/GCodes Start Time: 08:30 Stop Time: 09:05 Total Time Billed (hr/min): 35 Billed Treatment Time 1 visit-ADL 2 (35 min) UMA ROMO Aug 08, 2018 09:10
[2018-08-08] MEDS ORDERED: LACTULOSE SYRUP 10GM/15ML (ENULOSE) 30ML UDC PO SCH (09:30)
[2018-08-08] MEDS: DOCUSATE SODIUM 100 MG (COLACE) CAP PO SCH (09:30)
[2018-08-08] MEDS: CARVEDILOL 12.5 MG (COREG) TABLET PO SCH (09:30)
[2018-08-08] MEDS: amLODIPine 5 MG (NORVASC) TAB PO SCH (09:30)
[2018-08-08] MEDS: SENNA W/DOCUSATE (SENOKOT S) TABLET PO SCH (09:30)
[2018-08-08] MEDS: ASPIRIN E.C. 325 MG (ECOTRIN) TABLET PO SCH (09:30)
[2018-08-08] MEDS: ENOXAPARIN 40 MG/0.4 ML (LOVENOX) SYR SC SCH (09:31)
[2018-08-08] MEDS: HYDROCHLOROTHIAZIDE 25 MG (HCTZ) TAB PO SCH (09:37)
--- NOTE | 2018-08-08 10:16 | NUR ---
CM/SS discharge information sent to [facility], choice form in the patient chart. Patient has CPM and walker.
--- NOTE | 2018-08-08 13:11 | Physical Therapy Daily Note ---
PT Daily Note-Current Subjective Pt laying Supine in bed after just finishing lunch. Pt agrees to PT, reporting that pt may return home today. This is confirmed by Nurse that depending on how PT was performed, pt could go home today. Pain Numeric Pain Scale: 4 Location: Left Location Body Site: Knee Pain Description: Ache, Tightness Mental Status Patient Orientation: Person, Place, Time, Situation Attachments: Polar Pack, Other-See Comments (CPM), IV Transfers Therapy Code Descriptions/Definitions Functional [place] Measure: 0=Not Assessed/NA 4=Minimal Assistance 1=Total Assistance 5=Supervision or Setup 2=Maximal Assistance 6=Modified [place] 3=Moderate Assistance 7=Complete [place] Therapy Quality Codes: 6 Independent with activity with or without an assistive device 5 Patient requires set up or clean up by helper. Patient completes activity by themselves 4 Supervision or touching assist (CGA). [place] provide cues , steadying assist 3 The helper provides less than half the effort to complete the activity 2 The helper provides more than half the effort to complete the activity 1 Dependent. The helper does all the effort to complete an activity 7 Patient refused to complete or attempt activity 9 The patient did not perform the activity before the current illness or injury 88 Not attempted due to Medical conditions or safety concerns Scootin Rollin Supine to/from Sit: 5 Sit to/from Stand: 5 Bed to/from Chair: 5 Weight Bearing Right Lower Extremity: Right Full Weight Bearing Left Lower Extremity: Left Full Weight Bearing Gait Training Distance (FIM): 1=up to 49 ft Distance: 20' Gait Level of Assist: 5 Gait Persons Needed: 1 Gait Assistive Device: FWW CHIEF SECURITY AND SAFETY OFFICER managed IV pole for pt. Exercises Supine Ex: Quad Set, Heel Slides, Hip abd/add Supine Reps: 10 Treatments CHIEF SECURITY AND SAFETY OFFICER had pt complete Supine Ex to show ROM and strength. Pt then transfers from supine to EOB then EOB to standing. After ambulating in room, pt uses restroom before returning to bed to rest. Pt has all needs met and CHASSIS INSPECTOR is notified of pt 's progress and wanting to return home. Assessment Current Status: Good Progress Pt feels as though movement is getting easier and will continue to improve after DC to home. CHIEF SECURITY AND SAFETY OFFICER gives instruction over Polar pack and use of it & CPM. PT Short Term Goals Short Term Goals Time Frame: Aug 14, 2018 Transfers (B,C,W/C) (FIM): 5 Gait (FIM): 2 Distance (FIM): 2=696-86 ft Gait Distance Comment: 125' Gait Level of Assist: 5 Gait Assistive Device: FWW Stairs (FIM): 2 # of Steps: 5 Stairs Level of Assist: 4 PT Plan Problem List Problem List: Activity Tolerance, Functional Strength Treatment/Plan Treatment Plan: Continue Plan of Care Treatment Plan: Bed Mobility, Education, Functional Activity Jayy, Functional Strength, Gait, Safety, Therapeutic Exercise, Transfers Treatment Duration: Aug 14, 2018 Frequency: 11 times per week Estimated Hrs Per Day: .25 hour per day Patient and/or Family Agrees t: Yes Safety Risks/Education Patient Education: Gait Training, Transfer Techniques, Reviewed Use of Ice, Correct Positioning, Disease Process, Safety Issues Teaching Recipient: Patient Teaching Methods: Discussion Response to Teaching: Verbalize Understanding Time/GCodes Time In: 1150 Time Out: 1215 Total Billed Treatment Time: 25 Total Billed Treatment 1, FA (15m ) & EX (10m) G Codes Necessary: MICHELINE Mccurdy PTA Aug 08, 2018 13:10
--- NOTE | 2018-08-08 15:45 | NUR ---
TOOK OUT PTS IV AT 1525. WENT OVER DC INSTRUCTIONS WITH PT AND PTS . INFORMED PT TO CHANGE DRESSING DAILY. GAVE PT [place] DRESSINGS FOR DC. PRESCRIPTIONS GIVEN TO WHICH HE WENT AND HAD FILLED BEFORE PT DC'D. NO QUESTIONS AT THIS TIME. PT TAKEN OUT IN WHEELCHAIR BY TECH.
[2018-08-09] MEDS ORDERED: KCL 10 MEQ TAB (MICRO K) PO SCH (07:00)
== END 2018-08-08 15:45 | disposition home health service (06) | DRG 470 ==
LOC: 4TH 06:15 → SURG 06:16 → 4TH 11:35
PROVIDERS: ADMIT Orthopaedic Surgery; ATTEND Orthopaedic Surgery
PROC: 0SRD0J9 Replacement of Left Knee Joint with Synthetic Substitute, Cemented, Open Approach (ICD-10-PCS; principal; 2018-08-06 07:55)
DX: M17.12 Unilateral primary osteoarthritis, left knee (principal); I10 Essential (primary) hypertension; E78.00 Pure hypercholesterolemia, unspecified; E03.9 Hypothyroidism, unspecified; J30.2 Other seasonal allergic rhinitis; K59.00 Constipation, unspecified; E87.6 Hypokalemia
CPT/HCPCS: 36415; 73560; 80048; 85027; 86850; 86900; 86901; 94664